=== PATIENT | male | born 1935 | race Caucasian/White ===

== ENCOUNTER 2019-07-24 00:43 | Emergency (ER) | payer OTHER, MEDICARE ==
--- NOTE | 2019-07-24 00:59 | EDM.PDOC ---
ED HPI GENERAL MEDICAL PROBLEM - General Chief Complaint: Chest Pain Stated Complaint: [facility] Time Seen by Provider: 07/24/19 00:51 Source of Information: Reports: Patient, [facility] Records History Limitations: Reports: No Limitations - History of Present Illness INITIAL COMMENTS - FREE TEXT/NARRATIVE: 83-year-old male from local senior living is brought to the hospital for evaluation of chest pain that he complained about at about midnight. He awoke from sleep with lower retrosternal chest pressure discomfort that has dissipated and gone away completely by the time he arrived in the ED. he states the pain was very bad he would've rated as 10 out of 10 when it was present. It seemed to get better once he sat her started to set up after lying down. This suggests a mechanical cause to the pain. Appreciated burping or belching. No feeling of heartburn or reflux. Pain did not radiate through to his back into his neck or left upper extremity. He has no known history of heart disease. His cough or sputum production. Pain is not worsened by deep breathing. He does feel pain mostly in the pit of his stomach when I firmly question him. No nausea or vomiting. Medics did not give him any medication for the discomfort since it was nearly gone at the time they picked him up. Patient states she's never had similar type pain before. States he does get heartburn once in a while. He states the pain lasted about 20-30 minutes. It then went away on its own. Patient's labs reveal that he has heart failure taking 60 mg of Lasix twice a day and is on Aldactone twice a day as well. However his O2 sats are 98% in the ED. Onset: Today Onset Date: 07/24/19 Onset Time: 00:00 Duration: Minutes: Location: Reports: Chest, Abdomen (Lower retrosternal chest and pit of the stomach) Quality: Reports: Ache, Pressure Severity: Moderate (Was a 6 out of 10.) Improves with: Reports: Other Worsens with: Reports: None (Went away on its own over a period of 20-30 minutes.) Context: Reports: Other (Spontaneous occurrence that awoken from sleep.). Denies: Activity, Exercise, Lifting, Sick Contact, Trauma Associated Symptoms: Reports: No Other Symptoms, Chest Pain. Denies: Confusion , Cough, cough w sputum, Diaphoresis, Fever/Chills, Headaches, Loss of Appetite , Malaise, Nausea/Vomiting, Rash, Seizure, Shortness of Breath, Syncope Treatments NPS: Reports: Other (see below) (None.) Bilateral Chest Pain Score (Numeric/FACES): 6 - Related Data Allergies Allergy/AdvReac Type Severity Reaction Status Date / Time codeine Allergy Cannot Verified 07/24/19 00:51 Remember Sulfa (Sulfonamide Allergy Cannot Verified 07/24/19 00:51 Antibiotics) Remember Home Meds: Home Meds Acetaminophen 325 - 650 mg PO Q8H PRN 07/24/19 [History] Acetaminophen 650 mg PO TID 07/24/19 [History] Albuterol [Ventolin HFA] 2 puff INH Q6H PRN 07/24/19 [History] Bisacodyl 10 mg RC Q3D PRN 07/24/19 [History] Budesonide/Formoterol [Symbicort 160-4.5 MCG] 2 puff INH BID 07/24/19 [History] Calcium Carbonate/Vitamin D3 [Calcium 600 + D3 Softgel] 1 each PO DAILY [History] Carbidopa/Levodopa [Sinemet 25-100 mg Tablet] 1 each PO TID 07/24/19 [History] FLUoxetine HCl [Fluoxetine HCl] 20 mg PO DAILY 07/24/19 [History] Folic Acid 0.4 mg PO DAILY 07/24/19 [History] Furosemide [Lasix] 60 mg PO BID 07/24/19 [History] Magnesium Hydroxide [Milk of Magnesia] 30 ml PO DAILY PRN 07/24/19 [History] Melatonin 6 mg PO BEDTIME 07/24/19 [History] Metoprolol Tartrate [Lopressor] 50 mg PO BID 07/24/19 [History] Polyethylene Glycol 3350 [MiraLAX] 17 gm PO DAILY 07/24/19 [History] Pyridoxine HCl [Vitamin B-6] 50 mg PO DAILY 07/24/19 [History] Spironolactone [Aldactone] 25 mg PO DAILY 07/24/19 [History] Tamsulosin [Tamsulosin 24 Hr] 0.4 mg PO DAILY 07/24/19 [History] guaiFENesin [G-Fenesin] 400 mg PO TID PRN 07/24/19 [History] Past Medical History Cardiovascular History: Reports: Heart Failure, High Cholesterol, Hypertension Gastrointestinal History: Reports: Chronic Constipation, GERD (Vocational GERD.) Genitourinary History: Reports: BPH (Nocturia usually 3 times nightly.) Musculoskeletal History: Reports: Back Pain, Chronic, Osteoarthritis Neurological History: Reports: Parkinson's (He is on carbidopa levodopa 3 times a day.) Social & Family History - Living Situation & Occupation Living situation: Reports: , Extended Care Facility ([facility]) Occupation: Retired ED ROS GENERAL - Review of Systems Review Of Systems: See Below Constitutional: Reports: Malaise, Weakness, Fatigue. Denies: Fever, Chills HEENT: Reports: Glasses (Revision.) Respiratory: Reports: Shortness of Breath, Cough. Denies: Wheezing, Pleuritic Chest Pain, Sputum Cardiovascular: Reports: Blood Pressure Problem, Dyspnea on Exertion (Chronic lower extremities.), Edema. Denies: Chest Pain (Occasional cough with thick sputum.), Claudication, Lightheadedness, Orthopnea Endocrine: Reports: Fatigue ( Chronically.) GI/Abdominal: Reports: Constipation, Other (Occasional reflux.) : Reports: Frequency, Other (Nocturia usually 3. Known BPH.) Musculoskeletal: Reports: Back Pain, Joint Pain (Knees hips neck and shoulders at times.) Skin: Reports: No Symptoms Neurological: Reports: Difficulty Walking (Due to Parkinson's disease.) Psychiatric: Denies: Hallucinations Hematologic/Lymphatic: Reports: No Symptoms Immunologic: Reports: No Symptoms ED EXAM, GENERAL - Physical Exam Exam: See Below Exam Limited By: No Limitations General Appearance: Alert, WD/WN, No Apparent Distress, Other (Vital signs show temperature 36.9 with a pulse of 67 and sinus. Respiratory 16 BP is 11/22/49. Pulse ox 98% on room air.) Eye Exam: Bilateral Eye: Normal Inspection Throat/Mouth: Normal Inspection, Normal Lips, Normal Oropharynx Head: Atraumatic, Normocephalic Neck: Normal Inspection, Supple, Non-Tender, Full Range of Motion. No: Lymphadenopathy (L), Lymphadenopathy (R) Respiratory/Chest: No Respiratory Distress, Normal Breath Sounds, Decreased Breath Sounds, Other (I can easily hear bowel sounds in his upper anterior chest.). No: Rales, Rhonchi, Wheezing Cardiovascular: Regular Rate, Rhythm, No Gallop, No Murmur, No Rub, Systolic Murmur (Grade 2/6 pansystolic ejection murmur best heard at the left lower sternal border compatible with aortic stenosis.). No: Normal Peripheral Pulses , No Edema Peripheral Pulses: 1+: Posterior Tibial (L), Posterior Tibial (R), Dorsalis Pedis (L), Dorsalis Pedis (R) GI/Abdominal: Soft, No Organomegaly, Pelvis Stable, Distended (Gallstones are hyperactive in all 4 quadrants. Mildly distended and diffusely tympanitic to percussion with compatible with aerophagia.), Abnormal Bowel Sounds, Other (It appears that he may have had some surgery infraumbilically in the past but he doesn't remember having surgery.) (Male) Exam: No Hernia, Other Back Exam: Normal Inspection, Full Range of Motion. No: CVA Tenderness (L), CVA Tenderness (R) Extremities: Normal Inspection, Normal Range of Motion, Non-Tender, Pedal Edema Neurological: Alert, Oriented (Mild pitting edema around the ankles.), CN II- XII Intact, Normal Cognition Psychiatric: Normal Affect, Normal Mood Skin Exam: Warm, Dry, Intact, Normal Color, No Rash EKG INTERPRETATION EKG Date: 07/24/19 Time: 00:46 Rhythm: NSR Rate (Beats/Min): 66 (Occasional PACs.) [place]: LAD-Left [place] Deviation (-30.) P-Wave: Enlarged (Consider left atrial hypertrophy.) QRS: Other (Early R-wave transition in V2 suggesting right ventricular hypertrophy pattern. There is a diffuse nonspecific intraventricular conduction delay pattern.) QT: Prolonged (Mildly prolonged.) EKG Interpretation Comments: Abnormal ECG with no signs of acute ischemia. Course - Vital Signs Last Recorded V/S: Last Vital Signs Temp 36.9 C 07/24/19 00:48 Pulse 67 07/24/19 00:48 Resp 16 07/24/19 00:48 BP 130/49 L 07/24/19 00:48 Pulse Ox 98 07/24/19 00:48 - Orders/Labs/Meds Orders: Active Orders 24 hr Category Date Time Status Bladder Scan [RC] ASDIRECTED Care 07/24/19 01:03 Active EKG Documentation Completion [RC] STAT Care 07/24/19 01:01 Active Abdomen 1V Flat [CR] Stat Exams 07/24/19 01:01 Taken Chest 2V [CR] Stat Exams 07/24/19 01:00 Taken Sodium Chloride 0.9% [Normal Saline] 1,000 ml Med 07/24/19 01:00 Active IV ASDIRECTED Medication Orders Sodium Chloride (Normal Saline) 1,000 mls @ 100 mls/hr IV ASDIRECTED DENNIS Last Admin: 07/24/19 01:39 Dose: 100 mls/hr Labs: Laboratory Tests 07/24/19 07/24/19 07/24/19 Range/Units 00:58 00:58 00:58 WBC 9.13 H (4.23-9.07) K/mm3 RBC 2.24 L (4.63-6.08) M/mm3 Hgb 8.2 L (13.7-17.5) gm/dl Hct 24.1 L (40.1-51.0) % MCV 107.6 H (79.0-92.2) fl MCH 36.6 H (25.7-32.2) pg MCHC 34.0 (32.2-35.5) g/dl RDW Std Deviation 68.6 H (35.1-43.9) fL Plt Count 277 (163-337) K/mm3 MPV 11.1 (9.4-12.3) fl Neut % (Auto) 74.8 H (34.0-67.9) % Lymph % (Auto) 13.1 L (21.8-53.1) % Kay % (Auto) 9.2 (5.3-12.2) % Eos % (Auto) 2.5 (0.8-7.0) Baso % (Auto) 0.4 (0.1-1.2) % Neut # (Auto) 6.82 H (1.78-5.38) K/mm3 Lymph # (Auto) 1.20 L (1.32-3.57) K/mm3 Kay # (Auto) 0.84 H (0.30-0.82) K/mm3 Eos # (Auto) 0.23 (0.04-0.54) K/mm3 Baso # (Auto) 0.04 (0.01-0.08) K/mm3 Manual Slide Review Abnormal smear PT 10.7 (9.7-12.0) SECONDS INR 0.98 APTT 25 (22-31) SECONDS Sodium 139 (136-145) mEq/L Potassium 4.2 (3.5-5.1) mEq/L Chloride 103 (98-107) mEq/L Carbon Dioxide 30 (21-32) mEq/L Anion Gap 10.2 (5-15) BUN 38 H (7-18) mg/dL Creatinine 2.0 H (0.7-1.3) mg/dL Est Cr Clr Drug Dosing TNP Estimated GFR (MDRD) 32 (>60) mL/min BUN/Creatinine Ratio 19.0 H (14-18) Glucose 107 (83-115) mg/dL Calcium 8.0 L (8.5-10.1) mg/dL Magnesium 2.3 (1.8-2.4) mg/dl Total Bilirubin 0.8 (0.2-1.0) mg/dL AST 23 (15-37) U/L ALT 12 L (16-63) U/L Alkaline Phosphatase 63 (46-116) U/L CK-MB (CK-2) 1.3 (0-3.6) ng/ml Troponin I 0.018 (0.00-0.056) ng/mL C-Reactive Protein < 0.2 (<1.0) mg/dL NT-Pro-B Natriuret Pep (0-450) pg/mL Total Protein 6.1 L (6.4-8.2) g/dl Albumin 3.3 L (3.4-5.0) g/dl Globulin 2.8 gm/dL Albumin/Globulin Ratio 1.2 (1-2) Amylase 44 (20-160) U/L Urine Color (Yellow) Urine Appearance (Clear) Urine pH (5.0-8.0) Ur Specific [place] (1.005-1.030) Urine Protein (Negative) Urine Glucose (UA) (Negative) Urine Ketones (Negative) Urine Occult Blood (Negative) Urine Nitrite (Negative) Urine Bilirubin (Negative) Urine Urobilinogen (0.2-1.0) Ur Leukocyte Esterase (Negative) Urine RBC (0-5) /hpf Urine WBC (0-5) /hpf Ur Epithelial Cells (0-5) /hpf Urine Bacteria (FEW) /hpf Urine Mucus (FEW) /hpf 10/01/19 10/01/19 Range/Units 00:58 01:44 WBC (4.23-9.07) K/mm3 RBC (4.63-6.08) M/mm3 Hgb (13.7-17.5) gm/dl Hct (40.1-51.0) % MCV (79.0-92.2) fl MCH (25.7-32.2) pg MCHC (32.2-35.5) g/dl RDW Std Deviation (35.1-43.9) fL Plt Count (163-337) K/mm3 MPV (9.4-12.3) fl Neut % (Auto) (34.0-67.9) % Lymph % (Auto) (21.8-53.1) % Kay % (Auto) (5.3-12.2) % Eos % (Auto) (0.8-7.0) Baso % (Auto) (0.1-1.2) % Neut # (Auto) (1.78-5.38) K/mm3 Lymph # (Auto) (1.32-3.57) K/mm3 Kay # (Auto) (0.30-0.82) K/mm3 Eos # (Auto) (0.04-0.54) K/mm3 Baso # (Auto) (0.01-0.08) K/mm3 Manual Slide Review PT (9.7-12.0) SECONDS INR APTT (22-31) SECONDS Sodium (136-145) mEq/L Potassium (3.5-5.1) mEq/L Chloride (98-107) mEq/L Carbon Dioxide (21-32) mEq/L Anion Gap (5-15) BUN (7-18) mg/dL Creatinine (0.7-1.3) mg/dL Est Cr Clr Drug Dosing Estimated GFR (MDRD) (>60) mL/min BUN/Creatinine Ratio (14-18) Glucose (83-115) mg/dL Calcium (8.5-10.1) mg/dL Magnesium (1.8-2.4) mg/dl Total Bilirubin (0.2-1.0) mg/dL AST (15-37) U/L ALT (16-63) U/L Alkaline Phosphatase (46-116) U/L CK-MB (CK-2) (0-3.6) ng/ml Troponin I (0.00-0.056) ng/mL C-Reactive Protein (<1.0) mg/dL NT-Pro-B Natriuret Pep 2823 H (0-450) pg/mL Total Protein (6.4-8.2) g/dl Albumin (3.4-5.0) g/dl Globulin gm/dL Albumin/Globulin Ratio (1-2) Amylase (20-160) U/L Urine Color Yellow (Yellow) Urine Appearance Slt cloudy H (Clear) Urine pH 6.0 (5.0-8.0) Ur Specific [place] 1.020 (1.005-1.030) Urine Protein Negative (Negative) Urine Glucose (UA) Negative (Negative) Urine Ketones Negative (Negative) Urine Occult Blood Negative (Negative) Urine Nitrite Negative (Negative) Urine Bilirubin Negative (Negative) Urine Urobilinogen 2.0 H (0.2-1.0) Ur Leukocyte Esterase Negative (Negative) Urine RBC 0-5 (0-5) /hpf Urine WBC 0-5 (0-5) /hpf Ur Epithelial Cells 5-10 H (0-5) /hpf Urine Bacteria Few (FEW) /hpf Urine Mucus Few (FEW) /hpf Meds: Medications Generic Name Dose Route Start Last Admin Trade Name Freq PRN Reason Stop Dose Admin Sodium Chloride 1,000 mls @ 100 mls/hr 07/24/19 01:00 07/24/19 01:39 Normal Saline IV 100 mls/hr ASDIRECTED DENNIS Administration Discontinued Medications Generic Name Dose Route Start Last Admin Trade Name Freq PRN Reason Stop Dose Admin Al Hydroxide/Mg Hydroxide 30 0 ml 07/24/19 01:04 07/24/19 01:39 ml/ Lidocaine HCl 15 ml PO 07/24/19 01:05 45 ml ONETIME ONE Administration Magnesium Citrate 240 ml 07/24/19 02:04 Citrate Of Magnesia PO 07/24/19 02:05 ONETIME ONE - Radiology Interpretation Free Text/Narrative:: Elderly male presents to the ED with a history of awakening from sleep around midnight and was severe central chest pressure discomfort. It dissipated before he came to the ED last about 20-30 minutes. He did not seem to radiate anywhere he didn't get any relief with burping or belching. On auscultation I can hear bowel sounds up in his anterior chest. He has very active bowel sounds however throughout his abdomen and he is mildly distended and tympanitic to percussion. Pain localized mostly to the pit of the stomach or epigastrium on exam. SPECT hiatal hernia that may have caused his chest pain. ECG shows sinus rhythm and is benign in terms no ischemic changes noted. His recovery has a history of congestive heart failure but lungs sound clear at this point time. Two-view chest x-ray to be done to see if I can identify hiatal hernia behind his heart. One of the abdomen due to distention and very active bowel sounds throughout. Routine labs to include cardiac markers. However this time he is pain-free and feels fine. - Re-Assessments/Exams Free Text/Narrative Re-Assessment/Exam: 07/24/19 02:00 two-view x-ray of the chest reveals moderate cardiomegaly. There is no pleural effusions. There is a soft tissue mass containing air protruding up into the retrocardiac space presumably colon. I could find no definite connection to the stomach to say that it is a hiatal hernia. X-rays of the abdomen shows a large amount of gas distending multiple areas of the colon. There is increased stool throughout the right hemicolon and hepatic flexure. This is compatible with mild to moderate constipation. No bowel obstruction signs of are identified. 07/24/19 02:03 White count is 9.13 with altered differential of 75% neutrophils. Hemoglobin is low at 8.2 with hematocrit of 24.1. MCV is markedly elevated at 107.6. This merges comments that there is abnormal blood cell morphology. This is nonspecific PT is 10.7 with an INR of 0.98 PTT is 25. Sodium is 139 with potassium of 4.2. Chloride is normal through the bicarbonate 30. Anion gap is 10.2 BUN is 38. Creatinine is 2.0 with a estimated GFR of 32 a staged 3 chronic kidney disease. Glucose is 107 with a calcium of 8.0. Magnesium is 2.3. Liver function is normal CK-MB fraction 1.3 troponin I is less than 0.018. C-reactive protein is less than 0.2. BNP is 2823. Total protein is 6.1 with an albumin fraction of 3.3. Amylase is 44. Urinalysis shows slightly cloudy urine 2+ urobilinogen but no signs of infection. Patient has had no recurrence of his chest pain. It appears that it is gastrointestinal in origin. He to take magnesium citrate or Citroma later this morning to provide bowel cleanse. Suggest 8 ounces by mouth next to 6 ounces of juice of choice. 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 This appears to be GI in origin. Bowel sounds were found to be hyperactive in all 4 quadrants with a lot of air distending the bowel. Bowel sounds were also heard in the chest. Heart tracing proved to be normal. Chest x-ray reveals soft tissue mass up in behind the heart that most likely is a large bowel pushing up the diaphragm in this area. I suspect this was the cause of your transient chest pressure pain. Lab tests proved to be completely negative for any heart related illness other than chronic congestive heart failure which you known to suffer from. X-rays of the abdomen revealed a large amount of air distending the colon with increased stool throughout the right hemicolon and along the liver and upper abdomen. This is constipation partly due to medications used to treat Parkinson's disease and also part of Parkinson's disease itself in terms of causing chronic constipation. No treatment was given in the ED. Suggest Citroma or magnesium citrate 8 ounces with 6 ounces of juice later this morning to provide bowel cleanse get rid of a lot of extra gas in the colon. This time continue all current medications including your water medication twice daily for heart failure. - My Orders Last 24 Hours: My Active Orders 07/24/19 01:00 Chest 2V [CR] Stat Sodium Chloride 0.9% [Normal Saline] 1,000 ml IV ASDIRECTED 07/24/19 01:01 EKG Documentation Completion [RC] STAT Abdomen 1V Flat [CR] Stat 07/24/19 01:03 Bladder Scan [RC] ASDIRECTED - Assessment/Plan Last 24 Hours: My Active Orders 07/24/19 01:00 Chest 2V [CR] Stat Sodium Chloride 0.9% [Normal Saline] 1,000 ml IV ASDIRECTED 07/24/19 01:01 EKG Documentation Completion [RC] STAT Abdomen 1V Flat [CR] Stat 07/24/19 01:03 Bladder Scan [RC] ASDIRECTED
[2019-07-24] MEDS ORDERED: Sodium Chloride 0.9% 1,000 ML IV SCH (01:00)
[2019-07-24] MEDS ORDERED: Alum Hydrox/Mag Hydrox/Simeth 30 ML, Lidocaine 2% 15 ML PO ONE ×2 (01:04)
[2019-07-24] MEDS ORDERED: Magnesium Citrate Solution 296 ML Bottle PO ONE (02:04)
--- NOTE | 2019-07-24 08:58 | CR ---
Chest: Two views of the chest were obtained. Comparison: No prior chest x-ray. Slight atelectasis or scarring is noted within the left base. Minimal pleural thickening is noted on the left lateral chest wall which is most likely old. Lungs otherwise are clear. Heart size is normal. Upper mediastinum is normal. Degenerative endplate spurring is noted within the spine with scattered disc space narrowing. Impression: 1. Slight atelectasis or scarring within the left base. Lateral pleural thickening within the left chest which is believed to be chronic. 2. Other incidental findings. Nothing acute is appreciated. Diagnostic code #2
--- NOTE | 2019-07-24 08:58 | CR ---
Abdomen: Supine view of the abdomen was obtained. Comparison: No prior abdominal x-ray. Degenerative endplate spurring is noted within the spine with scattered disc space narrowing. Aortoiliac stent is present. Joint space narrowing is noted within both hips. Vascular calcification is seen within the pelvis. Phleboliths are also noted within the pelvis. Slight increased stool within the colon is seen. Bowel gas within small bowel appears normal. Impression: 1. Findings believed to be incidental. Nothing acute is appreciated on supine abdominal x-ray. Diagnostic code #2
== END 2019-07-24 03:27 | disposition home or self-care (01) ==
LOC: JD.ED 00:43
DX: R07.89 Other chest pain (principal); I12.9 Hypertensive chronic kidney disease with stage 1 through stage 4 chronic kidney disease, or unspecified chronic kidney disease; N18.9 Chronic kidney disease, unspecified; D63.1 Anemia in chronic kidney disease; K59.01 Slow transit constipation; G21.9 Secondary parkinsonism, unspecified; M19.90 Unspecified osteoarthritis, unspecified site; Z88.5 Allergy status to narcotic agent; Z88.2 Allergy status to sulfonamides; Z79.899 Other long term (current) drug therapy
CPT/HCPCS: 36415; 71046; 74018; 80053; 81001; 82150; 82553; 83735; 83880; 84484; 85025; 85610; 85730; 86140; 93005; 96360; 99285; A9270; J7040; 93010

== ENCOUNTER 2019-07-26 16:31 | Emergency (ER) | payer OTHER, MEDICARE ==
[2019-07-26] MEDS ORDERED: HYDROmorphone 0.5 MG/0.5 ML Syringe IVPUSH ONE ×2 (17:03→17:54)
[2019-07-26] MEDS ORDERED: Alum Hydrox/Mag Hydrox/Simeth 30 ML, Lidocaine 2% 15 ML PO ONE ×2 (17:28)
--- NOTE | 2019-07-26 19:11 | EDM.PDOC ---
ED HPI GENERAL MEDICAL PROBLEM - General Chief Complaint: Chest Pain Stated Complaint: [facility] Time Seen by Provider: 07/26/19 16:50 Source of Information: Reports: Patient, EMS, Family History Limitations: Reports: No Limitations - History of Present Illness INITIAL COMMENTS - FREE TEXT/NARRATIVE: The patient presents with chest pain. This started about an hour before arrival. He was here a few days ago for the same. He has pain upon palpation to the front of the chest. He has no shortness of breath. He has no fever or chills. He has no cough. 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 Onset: Gradual Duration: Hour(s): Location: Reports: Chest Quality: Reports: Sharp Severity: Moderate Improves with: Reports: None Worsens with: Reports: None Associated Symptoms: Reports: Chest Pain, Shortness of Breath. Denies: Cough, Fever/Chills, Headaches, Nausea/Vomiting Left Chest Pain Score (Numeric/FACES): 9 - Related Data Allergies Allergy/AdvReac Type Severity Reaction Status Date / Time codeine Allergy Cannot Verified 07/26/19 16:38 Remember Sulfa (Sulfonamide Allergy Cannot Verified 07/26/19 16:38 Antibiotics) Remember Home Meds: Home Meds Acetaminophen 325 - 650 mg PO Q8H PRN 07/24/19 [History] Acetaminophen 650 mg PO TID 07/24/19 [History] Albuterol [Ventolin HFA] 2 puff INH Q6H PRN 07/24/19 [History] Bisacodyl 10 mg RC Q3D PRN 07/24/19 [History] Budesonide/Formoterol [Symbicort 160-4.5 MCG] 2 puff INH BID 07/24/19 [History] Calcium Carbonate/Vitamin D3 [Calcium 600 + D3 Softgel] 1 each PO DAILY [History] Carbidopa/Levodopa [Sinemet 25-100 mg Tablet] 1 each PO TID 07/24/19 [History] FLUoxetine HCl [Fluoxetine HCl] 20 mg PO DAILY 07/24/19 [History] Folic Acid 0.4 mg PO DAILY 07/24/19 [History] Furosemide [Lasix] 60 mg PO BID 07/24/19 [History] Magnesium Hydroxide [Milk of Magnesia] 30 ml PO DAILY PRN 07/24/19 [History] Melatonin 6 mg PO BEDTIME 07/24/19 [History] Metoprolol Tartrate [Lopressor] 50 mg PO BID 07/24/19 [History] Polyethylene Glycol 3350 [MiraLAX] 17 gm PO DAILY PRN 07/24/19 [History] Pyridoxine HCl [Vitamin B-6] 50 mg PO DAILY 07/24/19 [History] Spironolactone [Aldactone] 25 mg PO DAILY 07/24/19 [History] Tamsulosin [Tamsulosin 24 Hr] 0.4 mg PO DAILY 07/24/19 [History] guaiFENesin [G-Fenesin] 400 mg PO TID PRN 07/24/19 [History] Past Medical History HEENT History: Reports: Hard of Hearing Other HEENT History: Bilateral hearing aids Cardiovascular History: Reports: Heart Failure, High Cholesterol, Hypertension, Other (See Below) Other Cardiovascular History: nonrheumatic aortic stenosis Respiratory History: Reports: Asthma Gastrointestinal History: Reports: Chronic Constipation, GERD Genitourinary History: Reports: BPH Musculoskeletal History: Reports: Back Pain, Chronic, Osteoarthritis, Other ( See Below) Other Musculoskeletal History: chronic myeloproliferative disease Neurological History: Reports: Parkinson's, Other (See Below) Other Neuro History: spinal stenosis, tremor, insomnia Psychiatric History: Reports: Alzheimers Disease, Dementia Hematologic History: Reports: Other (See Below) Other Hematologic History: vitamin deficiency Social & Family History - Family History Family Medical History: Noncontributory - Tobacco Use Smoking Status *Q: Never Smoker - Recreational Drug Use Recreational Drug Use: No - Living Situation & Occupation Living situation: Reports: , Extended Care Facility ([facility]) Occupation: Retired ED ROS GENERAL - Review of Systems Review Of Systems: See Below Constitutional: Reports: No Symptoms HEENT: Reports: No Symptoms Respiratory: Reports: No Symptoms Cardiovascular: Reports: Chest Pain Endocrine: Reports: No Symptoms GI/Abdominal: Reports: No Symptoms : Reports: No Symptoms ED EXAM, GENERAL - Physical Exam Exam: See Below Exam Limited By: No Limitations General Appearance: Alert, No Apparent Distress Ears: Normal External Exam Nose: Normal Inspection Head: Atraumatic, Normocephalic Neck: Normal Inspection Respiratory/Chest: No Respiratory Distress, Lungs Clear, Normal Breath Sounds Cardiovascular: Regular Rate, Rhythm, No Edema, No Murmur, Other (Pain upon palpation to the anterior and left chest) EKG INTERPRETATION EKG Date: 07/26/19 Time: 16:50 Rhythm: NSR Rate (Beats/Min): 66 [place]: Normal P-Wave: Present QRS: Normal ST-T: Normal QT: Normal DC/PQ Interval: 1st degree HB EKG Interpretation Comments: PACs Course - Vital Signs Last Recorded V/S: Last Vital Signs Temp 97.7 F 07/26/19 16:32 Pulse 70 07/26/19 16:32 Resp 20 07/26/19 16:32 BP 96/78 07/26/19 16:32 Pulse Ox 91 L 07/26/19 16:32 - Orders/Labs/Meds Orders: Active Orders 24 hr Category Date Time Status EKG 12 Lead [EKG Documentation Completion] [RC] STAT Care 07/26/19 16:53 Active Chest 1V Frontal [CR] Stat Exams 07/26/19 16:48 Taken Labs: Laboratory Tests 07/26/19 07/26/19 Range/Units 17:18 17:18 WBC 10.26 H (4.23-9.07) K/mm3 RBC 2.35 L (4.63-6.08) M/mm3 Hgb 8.6 L (13.7-17.5) gm/dl Hct 25.4 L (40.1-51.0) % MCV 108.1 H (79.0-92.2) fl MCH 36.6 H (25.7-32.2) pg MCHC 33.9 (32.2-35.5) g/dl RDW Std Deviation 69.3 H (35.1-43.9) fL Plt Count 289 (163-337) K/mm3 MPV 11.2 (9.4-12.3) fl Neut % (Auto) 74.1 H (34.0-67.9) % Lymph % (Auto) 13.9 L (21.8-53.1) % Elliott % (Auto) 9.6 (5.3-12.2) % Eos % (Auto) 1.9 (0.8-7.0) Baso % (Auto) 0.5 (0.1-1.2) % Neut # (Auto) 7.60 H (1.78-5.38) K/mm3 Lymph # (Auto) 1.43 (1.32-3.57) K/mm3 Elliott # (Auto) 0.99 H (0.30-0.82) K/mm3 Eos # (Auto) 0.19 (0.04-0.54) K/mm3 Baso # (Auto) 0.05 (0.01-0.08) K/mm3 Manual Slide Review Abnormal smear Sodium 139 (136-145) mEq/L Potassium 4.9 (3.5-5.1) mEq/L Chloride 103 (98-107) mEq/L Carbon Dioxide 30 (21-32) mEq/L Anion Gap 10.9 (5-15) BUN 38 H (7-18) mg/dL Creatinine 2.0 H (0.7-1.3) mg/dL Est Cr Clr Drug Dosing TNP Estimated GFR (MDRD) 32 (>60) mL/min BUN/Creatinine Ratio 19.0 H (14-18) Glucose 99 (83-115) mg/dL Calcium 8.1 L (8.5-10.1) mg/dL Total Bilirubin 0.8 (0.2-1.0) mg/dL AST 27 (15-37) U/L ALT 17 (16-63) U/L Alkaline Phosphatase 61 (46-116) U/L Troponin I 0.050 (0.00-0.056) ng/mL Total Protein 6.3 L (6.4-8.2) g/dl Albumin 3.4 (3.4-5.0) g/dl Globulin 2.9 gm/dL Albumin/Globulin Ratio 1.2 (1-2) Meds: Medications Discontinued Medications Generic Name Dose Route Start Last Admin Trade Name Freq PRN Reason Stop Dose Admin Al Hydroxide/Mg Hydroxide 30 0 ml 07/26/19 17:28 07/26/19 17:33 ml/ Lidocaine HCl 15 ml PO 07/26/19 17:29 45 ml ONETIME ONE Administration Hydromorphone HCl 0.25 mg 07/26/19 17:03 07/26/19 17:07 Dilaudid IVPUSH 07/26/19 17:04 0.25 mg ONETIME ONE Administration Hydromorphone HCl 0.5 mg 07/26/19 17:54 10/03/19 17:58 Dilaudid IVPUSH 07/26/19 17:55 0.5 mg ONETIME ONE Administration - Re-Assessments/Exams Free Text/Narrative Re-Assessment/Exam: 07/26/19 19:09 I ordered an IV saline lock, EKG, CXR and labs. His EKG shows a NSR with no acute changes. His CXR looks good. 07/26/19 19:16 His Hgb is low at 8.6. His creatinine is elevated at 2. His troponin is negative. I gave him some toradol and a GI cocktail. He has chest pain upon palpation to the anterior chest. I feel this is chest wall pain. I will get him on some motrin for a few days. Departure - Departure Time of Disposition: 19:20 Disposition: Home, Self-Care 01 Condition: Good Clinical Impression: Atypical chest pain Referrals: PCP,Unknown [Primary Care Provider] - Forms: ED Department Discharge Additional Instructions: Take motrin 400mg every 6 hours as needed for pain. Follow up with your doctor within a week. Drink plenty of fluids. Please return if you are worse. - My Orders Last 24 Hours: My Active Orders 07/26/19 16:48 Chest 1V Frontal [CR] Stat 07/26/19 16:53 EKG 12 Lead [EKG Documentation Completion] [RC] STAT - Assessment/Plan Last 24 Hours: My Active Orders 07/26/19 16:48 Chest 1V Frontal [CR] Stat 07/26/19 16:53 EKG 12 Lead [EKG Documentation Completion] [RC] STAT
--- NOTE | 2019-07-27 09:36 | CR ---
Chest: Portable view of the chest was obtained. Comparison: Prior chest x-ray of 07/24/19. Slight chronic change is seen within the left base. Lungs otherwise are clear. Heart is mildly enlarged. Tortuous thoracic aorta is seen. Widened upper mediastinum is seen which appears stable. Bony structures are grossly intact. Impression: 1. Findings as noted above which are stable from previous chest x-ray. 2. Nothing acute is appreciated. Diagnostic code #2
== END 2019-07-26 20:13 | disposition home or self-care (01) ==
LOC: JD.ED 16:31
DX: R07.89 Other chest pain (principal); J45.909 Unspecified asthma, uncomplicated; I11.0 Hypertensive heart disease with heart failure; I50.9 Heart failure, unspecified; N40.0 Benign prostatic hyperplasia without lower urinary tract symptoms; G20 Parkinson's disease; G30.9 Alzheimer's disease, unspecified; F02.80 Dementia in other diseases classified elsewhere, unspecified severity, without behavioral disturbance, psychotic disturbance, mood disturbance, and anxiety; Z79.899 Other long term (current) drug therapy; Z88.5 Allergy status to narcotic agent; Z88.2 Allergy status to sulfonamides; Z79.51 Long term (current) use of inhaled steroids
CPT/HCPCS: 36415; 71045; 80053; 84484; 85025; 93005; 96374; 96376; 99285; A9270; J1170

== ENCOUNTER 2019-11-04 15:30 | Emergency (ER) | payer OTHER, MEDICARE ==
--- NOTE | 2019-11-04 16:12 | EDM.PDOC ---
ED HPI GENERAL MEDICAL PROBLEM - General Chief Complaint: Abdominal Pain Stated Complaint: [facility] Time Seen by Provider: 11/04/19 16:01 Source of Information: Reports: Patient, Family, Assisted Records, RN Notes Reviewed - History of Present Illness INITIAL COMMENTS - FREE TEXT/NARRATIVE: 83 yr old male is sent here for eval of dry heaves, unable to eat or drink lunch. He started vomiting according to either during or shortly after lunch this past noon. Has not had a BM for 3 days so [place] staff has concern for possible bowel obstruction. Pt denies pain or vomiting but has dementia, unable to give an acurate hx. His states he had anurysm repair about 6 yrs ago, I do not see any surgical scars. No chest pain or difficulty breathing. Has been afebrile. He has advanced dementia. Not able to give a good hx at all. His states he also had an episode of vomiting at the [place] about 2 weeks ago but since than has done OK up until today. - Related Data Allergies Allergy/AdvReac Type Severity Reaction Status Date / Time codeine Allergy Cannot Verified 11/04/19 15:37 Remember Home Meds: Home Meds Albuterol [Ventolin HFA] 2 puff INH Q6H PRN 07/24/19 [History] Budesonide/Formoterol [Symbicort 160-4.5 MCG] 2 puff INH BID 07/24/19 [History] Calcium Carbonate/Vitamin D3 [Calcium 600 + D3 Softgel] 600 each PO DAILY [History] Carbidopa/Levodopa [Sinemet 25-100 mg Tablet] 1 each PO TID 07/24/19 [History] FLUoxetine HCl [Fluoxetine HCl] 40 mg PO DAILY 07/24/19 [History] Folic Acid 0.4 mg PO DAILY 07/24/19 [History] Furosemide [Lasix] 60 mg PO BID 07/24/19 [History] Magnesium Hydroxide [Milk of Magnesia] 30 ml PO DAILY PRN 07/24/19 [History] Melatonin 6 mg PO BEDTIME 07/24/19 [History] Metoprolol Tartrate [Lopressor] 50 mg PO BID 07/24/19 [History] Polyethylene Glycol 3350 [MiraLAX] 17 gm PO DAILY PRN 07/24/19 [History] Pyridoxine HCl [Vitamin B-6] 50 mg PO DAILY 07/24/19 [History] Spironolactone [Aldactone] 25 mg PO DAILY 07/24/19 [History] Tamsulosin [Tamsulosin 24 Hr] 0.4 mg PO DAILY 07/24/19 [History] bisacodyL [Bisacodyl] 10 mg RECTAL DAILY PRN 07/24/19 [History] guaiFENesin [G-Fenesin] 400 mg PO TID PRN 07/24/19 [History] Acetaminophen 650 mg PO TID 11/04/19 [History] Bisacodyl 5 mg PO DAILY 11/04/19 [History] Diclofenac Sodium [Voltaren 1% Gel] 2 g TOP BID 11/04/19 [History] Ibuprofen 400 mg PO ASDIRECTED 11/04/19 [History] Methyl Salicylate/Menthol [Extra Strength Muscle Rub] 90 dose TOP DAILY [History] guaiFENesin [Guaifenesin] 400 mg PO ASDIRECTED 11/04/19 [History] traMADol [Ultram] 50 mg PO BID 11/04/19 [History] Past Medical History HEENT History: Reports: Hard of Hearing Other HEENT History: Bilateral hearing aids Cardiovascular History: Reports: Heart Failure, High Cholesterol, Hypertension, Other (See Below) Other Cardiovascular History: nonrheumatic aortic stenosis, atherosclerotic heart disease Respiratory History: Reports: Asthma Gastrointestinal History: Reports: Chronic Constipation, GERD Genitourinary History: Reports: BPH Musculoskeletal History: Reports: Back Pain, Chronic, Osteoarthritis, Other ( See Below) Other Musculoskeletal History: chronic myeloproliferative disease Neurological History: Reports: Alzheimers Disease, Parkinson's, Other (See Below ) Other Neuro History: spinal stenosis, tremor, insomnia Psychiatric History: Reports: Alzheimers Disease, Dementia Hematologic History: Reports: Other (See Below) Other Hematologic History: vitamin deficiency Social & Family History - Family History Family Medical History: Noncontributory - Tobacco Use Smoking Status *Q: Never Smoker Second Hand Smoke Exposure: No - Caffeine Use Caffeine Use: Reports: None - Recreational Drug Use Recreational Drug Use: No - Living Situation & Occupation Living situation: Reports: , Extended Care Facility ([facility]) Occupation: Retired ED ROS GENERAL - Review of Systems Review Of Systems: See Below Constitutional: Denies: Fever, Chills HEENT: Denies: Throat Pain Respiratory: Denies: Shortness of Breath, Cough Cardiovascular: Denies: Chest Pain GI/Abdominal: Reports: Constipation, Vomiting. Denies: Abdominal Pain, Diarrhea Neurological: Reports: Confusion (chronic) ED EXAM, GI/ABD - Physical Exam Exam: See Below General Appearance: Alert, No Apparent Distress (at time of initial exam) Eyes: Bilateral: Normal Appearance Throat/Mouth: Normal Inspection, Normal Oropharynx Head: Atraumatic. No: Facial Swelling Neck: Supple Respiratory/Chest: No Respiratory Distress, Lungs Clear, Normal Breath Sounds. No: Rhonchi, Wheezing Cardiovascular: Regular Rate, Rhythm GI/Abdominal Exam: Soft, Non-Tender. No: Guarding, Rebound Back Exam: No: CVA Tenderness (L), CVA Tenderness (R) Extremities: No: Leg Pain Course - Vital Signs Last Recorded V/S: Last Vital Signs Temp 98.1 F 11/04/19 15:33 Pulse 71 11/04/19 15:33 Resp 16 11/04/19 15:33 BP 106/50 L 11/04/19 15:33 Pulse Ox 91 L 11/04/19 15:33 - Orders/Labs/Meds Orders: Active Orders 24 hr Category Date Time Status Peripheral IV Care [RC] . DIRECTED Care 11/04/19 16:15 Active Peripheral IV Insertion Adult [OM.PC] Stat Oth 11/04/19 16:14 Ordered Labs: Laboratory Tests 11/04/19 11/04/19 11/04/19 Range/Units 16:30 16:30 16:30 WBC 7.91 (4.23-9.07) K/mm3 RBC 2.89 L (4.63-6.08) M/mm3 Hgb 8.9 L (13.7-17.5) gm/dl Hct 27.3 L (40.1-51.0) % MCV 94.5 H D (79.0-92.2) fl MCH 30.8 (25.7-32.2) pg MCHC 32.6 (32.2-35.5) g/dl RDW Std Deviation 79.2 H (35.1-43.9) fL Plt Count 245 (163-337) K/mm3 MPV 10.6 (9.4-12.3) fl Neut % (Auto) 74.9 H (34.0-67.9) % Lymph % (Auto) 12.6 L (21.8-53.1) % Worth % (Auto) 9.9 (5.3-12.2) % Eos % (Auto) 0.9 (0.8-7.0) Baso % (Auto) 0.3 (0.1-1.2) % Neut # (Auto) 5.93 H (1.78-5.38) K/mm3 Lymph # (Auto) 1.00 L (1.32-3.57) K/mm3 Worth # (Auto) 0.78 (0.30-0.82) K/mm3 Eos # (Auto) 0.07 (0.04-0.54) K/mm3 Baso # (Auto) 0.02 (0.01-0.08) K/mm3 Manual Slide Review Abnormal smear Sodium 141 (136-145) mEq/L Potassium 4.3 (3.5-5.1) mEq/L Chloride 106 (98-107) mEq/L Carbon Dioxide 27 (21-32) mEq/L Anion Gap 12.3 (5-15) BUN 37 H (7-18) mg/dL Creatinine 1.8 H (0.7-1.3) mg/dL Est Cr Clr Drug Dosing 31.54 mL/min Estimated GFR (MDRD) 36 (>60) mL/min BUN/Creatinine Ratio 20.6 H (14-18) Glucose 100 (83-115) mg/dL Lactic Acid 0.9 (0.4-2.0) mmol/L Calcium 7.8 L (8.5-10.1) mg/dL Total Bilirubin 1.3 H (0.2-1.0) mg/dL AST 19 (15-37) U/L ALT 8 L (16-63) U/L Alkaline Phosphatase 46 (46-116) U/L C-Reactive Protein 0.8 (<1.0) mg/dL Total Protein 5.6 L (6.4-8.2) g/dl Albumin 3.0 L (3.4-5.0) g/dl Globulin 2.6 gm/dL Albumin/Globulin Ratio 1.2 (1-2) Meds: Medications Discontinued Medications Generic Name Dose Route Start Last Admin Trade Name Freq PRN Reason Stop Dose Admin Diatrizoate Meglum/Diatrizoate Sod 5 ml 11/04/19 19:19 11/04/19 19:54 Gastrografin 37% PO 11/04/19 19:20 5 ml ONETIME ONE Administration Glucagon 1 mg 11/04/19 18:59 11/04/19 19:15 Glucagen IVPUSH 11/04/19 19:00 1 mg ONETIME ONE Administration Sodium Chloride 1,000 mls @ 150 mls/hr 11/04/19 16:15 11/04/19 16:28 Normal Saline IV 150 mls/hr ASDIRECTED DENNIS Administration Piperacillin Sod/Tazobactam 100 mls @ 200 mls/hr 11/04/19 17:52 11/04/19 18: 03 Sod 4.5 gm/ Sodium Chloride IV 11/04/19 18:21 Not Given ONETIME ONE Ondansetron HCl 4 mg 11/04/19 16:15 11/04/19 16:27 Zofran IVPUSH 11/04/19 16:16 4 mg ONETIME ONE Administration Sodium Chloride 10 ml 11/04/19 16:15 11/04/19 16:27 Saline Flush FLUSH 10 ml ASDIRECTED PRN Administration Keep Vein Open - Re-Assessments/Exams Free Text/Narrative Re-Assessment/Exam: 11/05/19 14:58. Labs were nl, Flat and upright abd unremarkable. Pt is difficult in that with his advanced dementia he can give no hx and not sure if he even is able to describe current sx or how he feels at this time. When asked about abd or chest pain or difficulty swallowing or pain with swallowing the answer is always neg. I did have him drink water, he did swallow about 3 to 4 oz water without difficulty but than a minute or 2 later did start spitting saliva and than I am told he vomited water after I left the room. That continued to raise concern for impacted food bolus. I did discuss this with Dr Lennon, General Surgeon medical sonographer who suggested we do a chest CT and have him drink a small amt of contrast just prior to doing the CT. This was done. See Radiology report for details. He did get contrast down into the stomach, no evidence of food bolus impaction on CT. He may have some distal esophogeal stricture. I did further discuss this with Dr Lennon who did examine patient, discuss sx and findings with his who has been present for the whole ED visit. He did drink more water without difficulty for Dr Lennon. He feels it is safe for him to go back to the [place]. If he does have more symptoms, difficulty swallowing, eating or drinking than strong consideration will be given for elective endoscopy. Departure - Departure Time of Disposition: 20:45 Disposition: Home, Self-Care 01 Condition: Fair Clinical Impression: Vomiting - Discharge Information Instructions: Vomiting, Adult Referrals: Tyler Palumbo MD [Primary Care Provider] - Forms: ED Department Discharge Additional Instructions: Clear liquids only recomended until tomorrow afternoon (11/05). Than very careful bland diet as tolerated. If Scar does have more difficulty with swallowing or further vomiting call Dr Lennon, General Surgeon who did see patient this evening. If he does have further difficulty swallowing consideration will be given for endoscopy. Continue current meds. Call Dr Van as needed. Return to ED as needed. Sepsis Event Note - Evaluation Sepsis Screening Result: No Definite Risk - Focused Exam Date Exam was Performed: 11/05/19 Time Exam was Performed: 14:58 - My Orders Last 24 Hours: My Active Orders 11/04/19 16:14 Peripheral IV Insertion Adult [OM.PC] Stat 11/04/19 16:15 Peripheral IV Care [RC] . DIRECTED - Assessment/Plan Last 24 Hours: My Active Orders 11/04/19 16:14 Peripheral IV Insertion Adult [OM.PC] Stat 11/04/19 16:15 Peripheral IV Care [RC] . DIRECTED
[2019-11-04] MEDS ORDERED: Sodium Chloride 0.9% 10 ML Syringe FLUSH PRN (16:15)
[2019-11-04] MEDS ORDERED: Sodium Chloride 0.9% 1,000 ML IV SCH (16:15)
[2019-11-04] MEDS ORDERED: Ondansetron 4 MG/2 ML SDV IVPUSH ONE (16:15)
[2019-11-04] MEDS ORDERED: Piperacillin/Tazobactam 4.5 GM in Sodium Chloride 0.9% 100 ML IV ONE (17:52)
[2019-11-04] MEDS ORDERED: Glucagon,Human Recombinant 1 MG Vial IVPUSH ONE (18:59)
[2019-11-04] MEDS ORDERED: Diatrizoate Meglumine/Diatrizoate Sodium 37% 120 ML Bottle PO ONE (19:19)
--- NOTE | 2019-11-04 20:30 | CT ---
CT chest Technique: Multiple axial sections were obtained from above the lung apices inferiorly through the lung bases. Intravenous contrast not utilized. Oral contrast has been given. Findings: Small hiatal hernia is noted. Mild esophageal wall thickening is seen as well as patulous esophagus. There is a portion of the distal esophagus that is not well distended and difficult to exclude a stricture although this is not a definite finding. Contrast is otherwise seen throughout the esophagus with small amount of contrast seen within the stomach. Coronary artery calcification is seen. Mitral annulus calcification is noted. No pericardial thickening is seen. Mediastinum and hilar region show no adenopathy. Atherosclerotic calcification is noted within the thoracic aorta without aneurysm. No axillary adenopathy is seen. Lungs show no acute parenchymal change. No pleural effusions are seen. Bone window settings were reviewed showing slight degenerative change within the spine. Impression: 1. Contrast throughout the esophagus with no evidence of complete obstruction. There is one area within the distal esophagus showing no distention and difficult to exclude stricture although this may relate to lack of peristalsis. Small hiatal hernia is noted with mild areas of wall thickening. Wall thickening that was seen likely relates to gastroesophageal reflux. 2. Other findings believed to be nonacute as noted above. Diagnostic code #2 This report was dictated in [place] Standard Time
--- NOTE | 2019-11-04 20:55 | PCM.CONS ---
H&P History of Present Illness - General Date of Service: 11/04/19 Admit Problem/Dx: esophageal obstruction Source of Information: Family, Provider History Limitations: Reports: Altered Mental Status - History of Present Illness Onset of Symptoms: Reports: Today Duration of Symptoms: Reports: Hour(s): Location: Reports: Chest Other HPI/Comments: 83 yo M with dementia living in a retirement was noted to have vomiting, regurgitation, water brash today raising concern for food impaction. CT chest with PO contrast shows tapering of the mid esophagus with passage of water soluble contrast and a small hiatal hernia. - Related Data Allergies/Adverse Reactions: Allergies Allergy/AdvReac Type Severity Reaction Status Date / Time codeine Allergy Cannot Verified 11/04/19 15:37 Remember Home Medications: Home Meds Albuterol [Ventolin HFA] 2 puff INH Q6H PRN 07/24/19 [History] Budesonide/Formoterol [Symbicort 160-4.5 MCG] 2 puff INH BID 07/24/19 [History] Calcium Carbonate/Vitamin D3 [Calcium 600 + D3 Softgel] 600 each PO DAILY [History] Carbidopa/Levodopa [Sinemet 25-100 mg Tablet] 1 each PO TID 07/24/19 [History] FLUoxetine HCl [Fluoxetine HCl] 40 mg PO DAILY 07/24/19 [History] Folic Acid 0.4 mg PO DAILY 07/24/19 [History] Furosemide [Lasix] 60 mg PO BID 07/24/19 [History] Magnesium Hydroxide [Milk of Magnesia] 30 ml PO DAILY PRN 07/24/19 [History] Melatonin 6 mg PO BEDTIME 07/24/19 [History] Metoprolol Tartrate [Lopressor] 50 mg PO BID 07/24/19 [History] Polyethylene Glycol 3350 [MiraLAX] 17 gm PO DAILY PRN 07/24/19 [History] Pyridoxine HCl [Vitamin B-6] 50 mg PO DAILY 07/24/19 [History] Spironolactone [Aldactone] 25 mg PO DAILY 07/24/19 [History] Tamsulosin [Tamsulosin 24 Hr] 0.4 mg PO DAILY 07/24/19 [History] bisacodyL [Bisacodyl] 10 mg RECTAL DAILY PRN 07/24/19 [History] guaiFENesin [G-Fenesin] 400 mg PO TID PRN 07/24/19 [History] Acetaminophen 650 mg PO TID 11/04/19 [History] Bisacodyl 5 mg PO DAILY 11/04/19 [History] Diclofenac Sodium [Voltaren 1% Gel] 2 g TOP BID 11/04/19 [History] Ibuprofen 400 mg PO ASDIRECTED 11/04/19 [History] Methyl Salicylate/Menthol [Extra Strength Muscle Rub] 90 dose TOP DAILY [History] guaiFENesin [Guaifenesin] 400 mg PO ASDIRECTED 11/04/19 [History] traMADol [Ultram] 50 mg PO BID 11/04/19 [History] Past Medical History HEENT History: Reports: Hard of Hearing Other HEENT History: Bilateral hearing aids Cardiovascular History: Reports: Heart Failure, High Cholesterol, Hypertension, Other (See Below) Other Cardiovascular History: nonrheumatic aortic stenosis, atherosclerotic heart disease Respiratory History: Reports: Asthma Gastrointestinal History: Reports: Chronic Constipation, GERD Genitourinary History: Reports: BPH Musculoskeletal History: Reports: Back Pain, Chronic, Osteoarthritis, Other ( See Below) Other Musculoskeletal History: chronic myeloproliferative disease Neurological History: Reports: Alzheimers Disease, Parkinson's, Other (See Below ) Other Neuro History: spinal stenosis, tremor, insomnia Psychiatric History: Reports: Alzheimers Disease, Dementia Hematologic History: Reports: Other (See Below) Other Hematologic History: vitamin deficiency Social & Family History - Family History Family Medical History: Noncontributory - Tobacco Use Smoking Status *Q: Never Smoker Second Hand Smoke Exposure: No - Caffeine Use Caffeine Use: Reports: None - Recreational Drug Use Recreational Drug Use: No - Living Situation & Occupation Living situation: Reports: , Extended Care Facility ([facility]) Occupation: Retired H&P Review of Systems - Review of Systems: Review Of Systems: See Below Reason Not Obtained: advanced dementia Exam - Exam Exam: See Below - Vital Signs Vital Signs: Last Vital Signs Temp 36.7 C 11/04/19 15:33 Pulse 71 11/04/19 15:33 Resp 16 11/04/19 15:33 BP 106/50 L 11/04/19 15:33 Pulse Ox 91 L 11/04/19 15:33 Weight: 122.47 kg - Exam General: Alert HEENT: Conjunctiva Clear Neck: Supple Lungs: Clear to Auscultation, Normal Respiratory Effort Cardiovascular: Regular Rate GI/Abdominal Exam: Soft (Male) Exam: Deferred Rectal (Males) Exam: Deferred Skin: Warm, Dry Psychiatric: Normal Mood - Patient Data Lab Results Last 24 hrs: Laboratory Results - last 24 hr 11/04/19 11/04/19 11/04/19 Range/Units 16:30 16:30 16:30 WBC 7.91 (4.23-9.07) K/mm3 RBC 2.89 L (4.63-6.08) M/mm3 Hgb 8.9 L (13.7-17.5) gm/dl Hct 27.3 L (40.1-51.0) % MCV 94.5 H D (79.0-92.2) fl MCH 30.8 (25.7-32.2) pg MCHC 32.6 (32.2-35.5) g/dl RDW Std Deviation 79.2 H (35.1-43.9) fL Plt Count 245 (163-337) K/mm3 MPV 10.6 (9.4-12.3) fl Neut % (Auto) 74.9 H (34.0-67.9) % Lymph % (Auto) 12.6 L (21.8-53.1) % [place] % (Auto) 9.9 (5.3-12.2) % Eos % (Auto) 0.9 (0.8-7.0) Baso % (Auto) 0.3 (0.1-1.2) % Neut # (Auto) 5.93 H (1.78-5.38) K/mm3 Lymph # (Auto) 1.00 L (1.32-3.57) K/mm3 [place] # (Auto) 0.78 (0.30-0.82) K/mm3 Eos # (Auto) 0.07 (0.04-0.54) K/mm3 Baso # (Auto) 0.02 (0.01-0.08) K/mm3 Manual Slide Review Abnormal smear Sodium 141 (136-145) mEq/L Potassium 4.3 (3.5-5.1) mEq/L Chloride 106 (98-107) mEq/L Carbon Dioxide 27 (21-32) mEq/L Anion Gap 12.3 (5-15) BUN 37 H (7-18) mg/dL Creatinine 1.8 H (0.7-1.3) mg/dL Est Cr Clr Drug Dosing 31.54 mL/min Estimated GFR (MDRD) 36 (>60) mL/min BUN/Creatinine Ratio 20.6 H (14-18) Glucose 100 (83-115) mg/dL Lactic Acid 0.9 (0.4-2.0) mmol/L Calcium 7.8 L (8.5-10.1) mg/dL Total Bilirubin 1.3 H (0.2-1.0) mg/dL AST 19 (15-37) U/L ALT 8 L (16-63) U/L Alkaline Phosphatase 46 (46-116) U/L C-Reactive Protein 0.8 (<1.0) mg/dL Total Protein 5.6 L (6.4-8.2) g/dl Albumin 3.0 L (3.4-5.0) g/dl Globulin 2.6 gm/dL Albumin/Globulin Ratio 1.2 (1-2) Result Diagrams: 11/04/19 16:30 11/04/19 16:30 Sepsis Event Note - Evaluation Sepsis Screening Result: No Definite Risk - Focused Exam Vital Signs: Vital Signs Temp Pulse Resp BP Pulse Ox 11/04/19 15:33 36.7 C 71 16 106/50 L 91 L Date Exam was Performed: 11/04/19 Time Exam was Performed: 20:50 Consult PN Assessment/Plan Procedures: Procedures ASSAY OF AMYLASE (07/24/19) ASSAY OF MAGNESIUM (07/24/19) ASSAY OF NATRIURETIC PEPTIDE (07/24/19) ASSAY OF TROPONIN QUANT (07/26/19) BLOOD TRANSFUSION SERVICE (10/31/19) BLOOD TYPING SEROLOGIC ABO (10/31/19) BLOOD TYPING SEROLOGIC RH(D) (10/31/19) C-REACTIVE PROTEIN (07/24/19) COMPATIBILITY TEST ANTIGLOB (10/31/19) COMPLETE CBC W/AUTO DIFF WBC (07/26/19) COMPREHEN METABOLIC PANEL (07/26/19) CREATINE MB FRACTION (07/24/19) ELECTROCARDIOGRAM TRACING (07/26/19) EMERGENCY DEPT VISIT (07/26/19) HYDRATION IV INFUSION INIT (07/24/19) METABOLIC PANEL TOTAL CA (05/19/18) PROTHROMBIN TIME (07/24/19) RBC ANTIBODY SCREEN (10/31/19) ROUTINE VENIPUNCTURE (10/31/19) THER/PROPH/DIAG INJ IV PUSH (07/26/19) THROMBOPLASTIN TIME PARTIAL (07/24/19) TX/PRO/DX INJ SAME DRUG BRICK TESTER (07/26/19) URINALYSIS AUTO W/SCOPE (07/24/19) X-RAY EXAM ABDOMEN 1 VIEW (07/24/19) X-RAY EXAM CHEST 1 VIEW (07/26/19) X-RAY EXAM CHEST 2 VIEWS (07/24/19) Problem List Initiated/Reviewed/Updated: Yes Plan: Mr. Flores is now tolerating water by mouth without dysphagia or regurgitation. He may have had a transient food impaction or he may have issues from intrinsic esophageal disease as he has a hiatal hernia and history of reflux. I think that if he can tolerate clear liquids without issue he is fit for discharge back to the nursing facility and if dysphagia with more solid food persists he can follow up with me for diagnostic upper endoscopy. I have mentioned the possibility of g-tube gastropexy if it seems that his symptoms relate more to his hiatal hernia than anything. Requesting Provider: renetta Date Consult Requested: 11/04/19 Reason for Consult: dysphagia Patient History Reviewed: Yes Admission H&P Reviewed: Yes Consult Result/Summary:: Dysphagia. Now tolerating clears. No evidence of obstruction on CT scan. May follow up for outpatient upper endoscopy if symptoms persist with solid food. Notified Requestor: Yes Time Spent (in minutes): 45
--- NOTE | 2019-11-05 07:32 | CR ---
Abdomen: Supine and upright views of the abdomen were obtained. Comparison: Prior abdominal x-ray of 07/24/19. Aortoiliac stent is noted. Bowel gas pattern is normal. Joint space narrowing is noted within both hips. Surgical clips are seen within the right groin. Degenerative endplate spurring is noted within the spine. No free air is seen. Impression: 1. Findings believed to be incidental as noted above. Nothing acute seen on two-view abdominal x-ray. Diagnostic code #2 This report was dictated in [place] Standard Time
--- NOTE | 2019-11-05 07:32 | CR ---
Chest: Two views of the chest were obtained. Comparison: Prior chest x-ray of 07/26/19. Heart is slightly enlarged. Upper mediastinum is widened which appears stable. Lungs show slight scarring within the left base. Lungs otherwise are clear. Bony structures are grossly intact. Impression: 1. Findings as described above. 2. Nothing acute is seen. Diagnostic code #2 This report was dictated in [place] Standard Time
== END 2019-11-04 22:20 | disposition home or self-care (01) ==
LOC: JD.ED 15:30
DX: R11.10 Vomiting, unspecified (principal); I11.0 Hypertensive heart disease with heart failure; I50.9 Heart failure, unspecified; G30.9 Alzheimer's disease, unspecified; F02.80 Dementia in other diseases classified elsewhere, unspecified severity, without behavioral disturbance, psychotic disturbance, mood disturbance, and anxiety; Z88.5 Allergy status to narcotic agent; Z79.899 Other long term (current) drug therapy
CPT/HCPCS: 36415; 71046; 71250; 74019; 80053; 83605; 85025; 86140; 96361; 96374; 96375; 99285; J1610; J2405; J7030; Q9963; 99283

== ENCOUNTER 2019-11-26 08:20 | Day surgery (SDC) | payer OTHER, MEDICARE ==
--- NOTE | 2019-11-26 07:12 | PCM.PREANE ---
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/O2 utilized at night/Asthma) Cardiovascular: No Symptoms ([place]/AAA Repair 2014, CAD, Cardiomyopathy, CHF/Heart cath with 2 stents 2013, History of Aortic stenosis) Gastrointestinal: No Symptoms (GERD/hiatal hernia), Constipation, Vomiting Neurological: Dizziness (History of Meniere's Disease), Seizure (Dementia, Alzheimer's/Parkinson's Disease/History of seizures over one year ago??, and mini strokes one yr or more ago per [facility] Gait Disturbance Other: Reports: Easy Bruising, Neck Pain (Foraminal stenosis-cervical region- denies neck pain), Depression (Dementia), Anxiety - Physical Assessment NPO Status Date: 11/25/19 Vital Signs: HR:69 BP:112/55 Sat:95% room air Temp: 98.3 Resp: 17 Height: 1.78 m Weight: 90.718 kg ASA Class: 3 Mental Status: Other (History of dementia, parkinson disease, alzheimer's, orientated to person and place.) Airway Class: Mallampati = 2 Dentition: Reports: Dentures (upper and lower) Thyro-Mental Finger Breadths: 3 Mouth Opening Finger Breadths: 3 ROM/Head Extension: Full Lungs: Clear to Auscultation, Normal Respiratory Effort Cardiovascular: Regular Rate, Regular Rhythm, No Murmurs - Lab Values: All labs reviewed and noted, within acceptable ranges......(Values below noted) BUN=40 CR=1.94 HBG= 8.9 HCT=27.3 - Imaging/EKG Impressions: Echocardiogram: EF=55-60%, mild aortic valve stenosis, mild aortic valve regurgitation, mild mitral valve regurgitation - Allergies Allergies/Adverse Reactions: Allergies Allergy/AdvReac Type Severity Reaction Status Date / Time codeine Allergy Confusion Verified 11/23/19 13:03 morphine Allergy Confusion Verified 11/23/19 13:03 propoxyphene Allergy Confusion Verified 11/23/19 13:03 Sulfa (Sulfonamide Allergy Confusion Verified 11/23/19 13:03 Antibiotics) - Anesthesia Plan Pre-Op Medication Ordered: Beta Maurizio Beta Maurizio: Metoprolol Med Last Dose Date: 11/26/19 - Acknowledgements Anesthesia Type Planned: MAC Pt an Appropriate Candidate for the Planned Anesthesia: Yes Alternatives and Risks of Anesthesia Discussed w Pt/Guardian: Yes Pt/Guardian Understands and Agrees with Anesthesia Plan: Yes PreAnesthesia Questionnaire HEENT History: Reports: Hard of Hearing Other HEENT History: Bilateral hearing aids Cardiovascular History: Reports: Aneurysm, CAD, Cardiomyopathy, Heart Failure, High Cholesterol, Hypertension, Other (See Below) Other Cardiovascular History: nonrheumatic aortic stenosis, atherosclerotic heart disease, tibial artery occlusion, stents Respiratory History: Reports: Asthma Gastrointestinal History: Reports: Chronic Constipation, GERD, Other (See Below) Other Gastrointestinal History: gastric ulcer Genitourinary History: Reports: BPH [employer] ATTENDANT History: Reports: None Musculoskeletal History: Reports: Back Pain, Chronic, Osteoarthritis, Other ( See Below) Other Musculoskeletal History: chronic myeloproliferative disease, temor, bilateral hip injections Neurological History: Reports: Alzheimers Disease, Parkinson's, Seizure, Other ( See Below) Other Neuro History: spinal stenosis, tremor, insomnia, parkinsonism-secondary, menieres, cervical forminal stenosis Psychiatric History: Reports: Alzheimers Disease, Dementia, Depression Endocrine/Metabolic History: Reports: Vitamin D Deficiency, Other (See Below) Other Endocrine/Metabolic History: thyroid nodule Hematologic History: Reports: Anemia, Blood Transfusion(s), Other (See Below) Other Hematologic History: vitamin deficiency Immunologic History: Reports: None Oncologic (Cancer) History: Reports: Other (See Below) Other Oncologic History: MDS Dermatologic History: Reports: Other (See Below) Other Dermatologic History: ingrown toenail with surgery - Past Surgical History Head Surgeries/Procedures: Reports: None HEENT Surgical History: Reports: Naso-Sinus Surgery Cardiovascular Surgical History: Reports: AAA Repair Respiratory Surgical History: Reports: None GI Surgical History: Reports: EGD Female Surgical History: Reports: None Male Surgical History: Reports: None Endocrine Surgical History: Reports: None Neurological Surgical History: Reports: Other (See Below) Other Neurological Surgeries/Procedures: back surgery Musculoskeletal Surgical History: Reports: Other (See Below) Other Musculoskeletal Surgeries/Procedures:: right elbow surgery Oncologic Surgical History: Reports: None - HOME MEDS Home Medications: Home Meds Budesonide/Formoterol [Symbicort 160-4.5 MCG] 2 puff INH BID 07/24/19 [History] Carbidopa/Levodopa [Sinemet 25-100 mg Tablet] 1 each PO TID 07/24/19 [History] FLUoxetine HCl [Fluoxetine HCl] 40 mg PO DAILY 07/24/19 [History] Furosemide [Lasix] 40 mg PO BID 07/24/19 [History] Magnesium Hydroxide [Milk of Magnesia] 30 ml PO DAILY PRN 07/24/19 [History] Melatonin 6 mg PO BEDTIME 07/24/19 [History] Metoprolol Tartrate [Lopressor] 50 mg PO BID 07/24/19 [History] Pyridoxine HCl [Vitamin B-6] 50 mg PO DAILY 07/24/19 [History] Spironolactone [Aldactone] 25 mg PO DAILY 07/24/19 [History] Tamsulosin [Tamsulosin 24 Hr] 0.4 mg PO DAILY 07/24/19 [History] polyethylene glycoL 3350 [MiraLAX] 17 gm PO DAILY PRN 07/24/19 [History] Acetaminophen 650 mg PO TID 11/04/19 [History] Bisacodyl 10 mg PO DAILY 11/04/19 [History] Diclofenac Sodium [Voltaren 1% Gel] 1 dose TOP BID 11/04/19 [History] Ibuprofen 400 mg PO ASDIRECTED 11/04/19 [History] guaiFENesin [Guaifenesin] 400 mg PO Q3H PRN 11/04/19 [History] traMADol [Ultram] 50 mg PO BID 11/04/19 [History] Acetaminophen [Tylenol] 650 mg PO Q8H PRN 11/23/19 [History] Albuterol [Ventolin HFA] 2 puff INH Q6H PRN 11/23/19 [History] Calcium Carbonate/Vitamin D3 [Calcium 600 + Vit D 400 Softgl] 1 tab PO DAILY [History] Folic Acid 1 mg PO DAILY 11/23/19 [History] Furosemide [Lasix] 20 mg PO BID 11/23/19 [History] Megestrol Acetate [Megace Es] 400 mg PO DAILY 11/23/19 [History] Omeprazole Magnesium [Prilosec Otc] 20 mg PO QAM 11/23/19 [History] Promethazine [Phenergan] 1 dose TOP Q6H PRN 11/23/19 [History] Sennosides/Docusate Sodium [Senna-Docusate Sodium Tablet] 2 tab PO BEDTIME 11/23 [History] - CURRENT (IN HOUSE) MEDS Current Meds: Current Medications Lactated Ringer's (Ringers, Lactated) 1,000 mls @ 125 mls/hr IV ASDIRECTED DENNIS Stop: 11/26/19 23:00 Lidocaine/Sodium Bicarbonate (Buffered Lidocaine 1% In Ns 8.4%) 0.25 ml IDERM ONETIME PRN PRN Reason: Prior to IV Start Stop: 11/26/19 23:00 Sodium Chloride (Saline Flush) 10 ml FLUSH ASDIRECTED PRN PRN Reason: Keep Vein Open Stop: 11/26/19 23:00
[~2019-11-26 08:20] MED LIST: Lactated Ringers 1,000 ML IV SCH; Lidocaine 1% 6 ML ONE; Lidocaine 1%/Sod Bicarbonate in NS 8.4% 1 ML Syringe IDERM PRN; Propofol 200 MG/20 ML SDV ONE; Sodium Chloride 0.9% 10 ML Syringe FLUSH PRN; fentaNYL 100 MCG/2 ML SDV ONE
--- NOTE | 2019-11-26 11:21 | PCM48HPAN ---
Post Anesthesia Note - EVALUATION WITHIN 48HRS OF ANESTHETIC Vital Signs in Normal Range: Yes Patient Participated in Evaluation: Yes Respiratory Function Stable: Yes Airway Patent: Yes Cardiovascular Function Stable: Yes Hydration Status Stable: Yes Pain Control Satisfactory: Yes Nausea and Vomiting Control Satisfactory: Yes Mental Status Recovered: Yes Vital Signs: Last Vital Signs Temp 36.8 C 11/26/19 08:25 Pulse 69 11/26/19 08:25 Resp 17 11/26/19 08:25 BP 112/55 L 11/26/19 08:25 Pulse Ox 95 11/26/19 08:25
--- NOTE | 2019-11-27 08:12 | OR ---
DATE OF OPERATION: 11/27/2019 SURGEON: Lavon Amado MD PREOPERATIVE DIAGNOSIS: Nausea, vomiting, and upper abdominal pain. POSTOPERATIVE DIAGNOSIS: 1. 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 2. Stomach ulcer. 3. Edematous, erythematous gastric mucosa. OPERATION PERFORMED: Esophagogastroduodenoscopy with biopsies. ANESTHESIA: Monitored anesthesia care. ESTIMATED BLOOD LOSS: Minimal. COMPLICATIONS: None. INDICATION AND CONSENT: The patient is an 84-year-old male who is a [facility] patient due to dementia. The patient is currently having a lot of problem with p.o. intake. Has dysphagia, nausea, vomiting, difficulty swallowing, and 50-pound weight loss in the last 6 months. Emesis is nonbloody. The patient also has lymphoma and anemia. He has been managed by Dr. Carrion for both. Due to his dysphagia, the patient was seen in clinic, evaluated for EGD, and it was recommended that he undergoes an EGD. The patient presented today, and we proceeded with an EGD. DESCRIPTION OF PROCEDURE: The patient was taken to the procedure room, placed in left lateral decubitus position. Following induction of monitored anesthesia care, we began with upper GI. Scope was inserted and there was some thick mucus as well as a few residues of food in the upper and mid esophagus. Scope was advanced down. Due to the thick mucus, GE junction was visualized, but the irregularity of it was unclear. There was clearly some esophagitis in the distal esophagus. There was moderate stricture in the GE junction that appeared benign and we were able to traverse this stricture with moderate amount of force. Stomach was erythematous. There was a deep ulcer in the mid lesser curvature. Next to ulcer, there was a 6 mm polypoid lesion. There was diffuse edema and erythema from the fundus to the proximal antrum. Distal antrum and pylorus were normal. Duodenum was intubated. Duodenal bulb, first and second portion of duodenum appeared normal. Because of this abnormal mucosa of the stomach, multiple biopsies were taken in the stomach body as well as the fundus. The ulcer was also biopsied to obtain multiple samples. The polypoid lesion next to the ulcer was also biopsied. The GE junction was biopsied. Distal and mid esophagus were also biopsied for analysis. Antrum was biopsied for H. pylori as the patient has a history of this infection in the past. Once these were done, the stomach was suctioned out of air and procedure concluded. The patient will be returned to his [facility] for monitoring of any bleeding where I will see the patient in 10 days for discussion of pathology results and further plans. MMHEIDY /[id number] MTDD
== END 2019-11-26 13:05 | disposition home or self-care (01) ==
LOC: JD.SDS 08:20
PROVIDERS: ATTEND Surgery
DX: C16.0 Malignant neoplasm of cardia (principal); C16.9 Malignant neoplasm of stomach, unspecified; K20.9 Esophagitis, unspecified; K25.9 Gastric ulcer, unspecified as acute or chronic, without hemorrhage or perforation; K29.50 Unspecified chronic gastritis without bleeding; J45.909 Unspecified asthma, uncomplicated; I25.10 Atherosclerotic heart disease of native coronary artery without angina pectoris; E78.5 Hyperlipidemia, unspecified; I11.0 Hypertensive heart disease with heart failure; I50.9 Heart failure, unspecified; M16.10 Unilateral primary osteoarthritis, unspecified hip; N40.0 Benign prostatic hyperplasia without lower urinary tract symptoms; G30.9 Alzheimer's disease, unspecified; F02.80 Dementia in other diseases classified elsewhere, unspecified severity, without behavioral disturbance, psychotic disturbance, mood disturbance, and anxiety; Z88.5 Allergy status to narcotic agent; Z88.2 Allergy status to sulfonamides; Z88.8 Allergy status to other drugs, medicaments and biological substances; Z79.899 Other long term (current) drug therapy
CPT/HCPCS: 43239; J2001; J2704; J3010; J7120; 00731

== ENCOUNTER 2020-01-04 12:13 | Emergency (ER) | payer OTHER, MEDICARE ==
[2020-01-04] MEDS ORDERED: Dextrose 5%-0.9% NaCl 1,000 ML IV SCH (13:00)
--- NOTE | 2020-01-04 13:01 | EDM.PDOC ---
ED HPI GENERAL MEDICAL PROBLEM - General Chief Complaint: Cardiovascular Problem Stated Complaint: LOW BP Time Seen by Provider: 01/04/20 12:44 Source of Information: Reports: Family () History Limitations: Reports: Altered Mental Status - History of Present Illness INITIAL COMMENTS - FREE TEXT/NARRATIVE: 84-year-old elderly male sent across from [facility] by Dr. Amado-after he visited with the and the patient this morning. 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 Nothing will stay down and has not been able to eat for a lengthy period of time. Going into the assisted in early June and he weighed 285 pounds. He is down to about 185 pounds now. Patient is barely conscious at this point in time. Talk about whether or not he would benefit from an esophageal stent to allow him to eat. It is unclear to me whether or not anyone has had a discussion with himself and his about going on hospice and compassionate terminal care. Apparently he has a bed here at [facility] where he has been since around July 10. Really admitted to [facility] on June 28. Resident it appears that he has a terminal illness. He was sent across because of a blood pressure of 88/52 and felt to be significantly dehydrated. It is unclear whether or not he is suffering sepsis. The has not heard him cough. She states she does not know when he ate or drank last or try to eat or drink last. Onset: Gradual ([place] decline in health since May 2019. Admission to assisted in [place] June 28 and into [facility] July 10, 2019) Duration: Chronic, Getting Worse (Cannot keep anything down. Apparently had a EGD about a month ago with biopsies confirming esophageal cancer.) Location: Reports: Other (Fairly has esophageal and gastric cancer.) Quality: Reports: Other (Adult failure to thrive due to malnutrition and inability to eat due to cancer of the esophagus) Severity: Severe (100 pound weight loss over the last 5-1/2 months) Improves with: Reports: None Worsens with: Reports: Other (Patient continues to worsen is not able to eat or drink.) Associated Symptoms: Reports: Loss of Appetite, Malaise, Nausea/Vomiting, Weakness. 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: Other (see below) (None.) - Related Data Allergies Allergy/AdvReac Type Severity Reaction Status Date / Time codeine AdvReac Confusion Verified 01/04/20 12:28 morphine AdvReac Confusion Verified 01/04/20 12:28 propoxyphene AdvReac Confusion Verified 01/04/20 12:28 Sulfa (Sulfonamide AdvReac Confusion Verified 01/04/20 12:28 Antibiotics) Home Meds: Home Meds Budesonide/Formoterol [Symbicort 160-4.5 MCG] 2 puff INH BID 07/24/19 [History] Carbidopa/Levodopa [Sinemet 25-100 mg Tablet] 1 each PO TID 07/24/19 [History] FLUoxetine HCl [Fluoxetine HCl] 40 mg PO DAILY 07/24/19 [History] Furosemide [Lasix] 40 mg PO BID 07/24/19 [History] Magnesium Hydroxide [Milk of Magnesia] 30 ml PO DAILY PRN 07/24/19 [History] Melatonin 6 mg PO BEDTIME 07/24/19 [History] Metoprolol Tartrate [Lopressor] 50 mg PO BID 07/24/19 [History] Pyridoxine HCl [Vitamin B-6] 50 mg PO DAILY 07/24/19 [History] Spironolactone [Aldactone] 25 mg PO DAILY 07/24/19 [History] Tamsulosin [Tamsulosin 24 Hr] 0.4 mg PO DAILY 07/24/19 [History] polyethylene glycoL 3350 [MiraLAX] 17 gm PO DAILY PRN 07/24/19 [History] Acetaminophen 650 mg PO TID 11/04/19 [History] Bisacodyl 10 mg PO DAILY 11/04/19 [History] Diclofenac Sodium [Voltaren 1% Gel] 1 dose TOP BID 11/04/19 [History] Ibuprofen 400 mg PO ASDIRECTED 11/04/19 [History] guaiFENesin [Guaifenesin] 400 mg PO Q3H PRN 11/04/19 [History] traMADol [Ultram] 50 mg PO BID 11/04/19 [History] Acetaminophen [Tylenol] 650 mg PO Q8H PRN 11/23/19 [History] Albuterol [Ventolin HFA] 2 puff INH Q6H PRN 11/23/19 [History] Calcium Carbonate/Vitamin D3 [Calcium 600 + Vit D 400 Softgl] 1 tab PO DAILY [History] Folic Acid 1 mg PO DAILY 11/23/19 [History] Furosemide [Lasix] 20 mg PO BID 11/23/19 [History] Megestrol Acetate [Megace Es] 400 mg PO DAILY 11/23/19 [History] Omeprazole Magnesium [Prilosec Otc] 20 mg PO QAM 11/23/19 [History] Promethazine [Phenergan] 1 dose TOP Q6H PRN 11/23/19 [History] Sennosides/Docusate Sodium [Senna-Docusate Sodium Tablet] 2 tab PO BEDTIME 11/23 [History] Past Medical History HEENT History: Reports: Hard of Hearing Other HEENT History: Bilateral hearing aids Cardiovascular History: Reports: Aneurysm, CAD, Cardiomyopathy, Heart Failure, Heart Murmur (Mitral insufficiency murmur), High Cholesterol, Hypertension, Other (See Below) Other Cardiovascular History: nonrheumatic aortic stenosis, atherosclerotic heart disease, tibial artery occlusion, stents Respiratory History: Reports: Asthma Gastrointestinal History: Reports: Chronic Constipation, GERD, Other (See Below) Other Gastrointestinal History: gastric ulcer Genitourinary History: Reports: BPH ACID CORRECTION HAND History: Reports: None Musculoskeletal History: Reports: Back Pain, Chronic, Osteoarthritis, Other ( See Below) Other Musculoskeletal History: chronic myeloproliferative disease, temor, bilateral hip injections Neurological History: Reports: Alzheimers Disease, Parkinson's (Is on levodopa therapy.), Seizure, Other (See Below) Other Neuro History: spinal stenosis, tremor, insomnia, parkinsonism-secondary, menieres, cervical forminal stenosis Psychiatric History: Reports: Alzheimers Disease, Dementia, Depression Endocrine/Metabolic History: Reports: Vitamin D Deficiency, Other (See Below) Other Endocrine/Metabolic History: thyroid nodule Hematologic History: Reports: Anemia, Blood Transfusion(s), Other (See Below) Other Hematologic History: vitamin deficiency Immunologic History: Reports: None Oncologic (Cancer) History: Reports: Other (See Below) Other Oncologic History: MDS, stomach and esophogeal Dermatologic History: Reports: Other (See Below) Other Dermatologic History: ingrown toenail with surgery - Past Surgical History Head Surgeries/Procedures: Reports: None HEENT Surgical History: Reports: Naso-Sinus Surgery Cardiovascular Surgical History: Reports: AAA Repair Respiratory Surgical History: Reports: None GI Surgical History: Reports: EGD Male Surgical History: Reports: None Endocrine Surgical History: Reports: None Neurological Surgical History: Reports: Other (See Below) Other Neurological Surgeries/Procedures: back surgery Musculoskeletal Surgical History: Reports: Other (See Below) Other Musculoskeletal Surgeries/Procedures:: right elbow surgery Oncologic Surgical History: Reports: None Social & Family History - Family History Family Medical History: Noncontributory - Tobacco Use Smoking Status *Q: Never Smoker - Caffeine Use Caffeine Use: Reports: None - Recreational Drug Use Recreational Drug Use: No - Living Situation & Occupation Living situation: Reports: , Extended Care Facility ([facility]) Occupation: Retired ED ROS GENERAL - Review of Systems Review Of Systems: See Below Constitutional: Reports: Malaise, Weakness, Fatigue, Decreased Appetite ( June 2019 thing will stay down), Weight Loss (300 pound weight loss since) . Denies: Fever, Chills HEENT: Reports: Glasses Respiratory: Reports: Shortness of Breath. Denies: Wheezing, Pleuritic Chest Pain, Cough, Sputum Cardiovascular: Reports: Blood Pressure Problem, Lightheadedness. Denies: Chest Pain, Claudication (Tends to run very low as of late.), Dyspnea on Exertion, Orthopnea Endocrine: Reports: Fatigue GI/Abdominal: Reports: Constipation, Other (Known to have esophageal gastric cancer diagnosed by EGD approximately a month ago.). Denies: Abdominal Pain : Reports: Frequency, Other (Known to have BPH with an elevated PSA but biopsies were negative for cancer.) Musculoskeletal: Reports: Back Pain Skin: Reports: Pallor Neurological: Reports: Other (Present he is not speaking but will obey commands. ) Hematologic/Lymphatic: Reports: Anemia Immunologic: Reports: No Symptoms ED EXAM, GENERAL - Physical Exam Exam: See Below Exam Limited By: Other (And is nonverbal. He does obey commands i.e. he did open his mouth to allow me to look at his tongue.) General Appearance: Lethargic, Other (Is not appear to be in any distress. Temperature is 36.6 with a heart rate of 85 respiratory 16 BP 11/13/1975 pulse of ox is 98% on room air) Eye Exam: Bilateral Eye: Normal Inspection (He does have mild blepharal pallor. No scleral icterus.) Throat/Mouth: Other Head: Atraumatic (Tongue is slightly moist. Oropharynx is dry otherwise.), Normocephalic Neck: Normal Inspection, Supple, Non-Tender, Full Range of Motion. No: Lymphadenopathy (L), Lymphadenopathy (R) Respiratory/Chest: No Respiratory Distress, Lungs Clear, Normal Breath Sounds, No Accessory Muscle Use, Chest Non-Tender Cardiovascular: Normal Peripheral Pulses, Regular Rate, Rhythm, No Edema, No Gallop, No Rub, Systolic Murmur (Systolic ejection murmur heard best at the left lower sternal border radiating towards the left axilla compared with mitral insufficiency. 2 out of 6), Other (Presents hypotensive. 100/57) Peripheral Pulses: 0: Posterior Tibial (L) (Pulses are not present in either foot due to dependent edema. They are very cool to touch.), Posterior Tibial (R ), Dorsalis Pedis (L), Dorsalis Pedis (R) GI/Abdominal: Normal Bowel Sounds, Soft, Non-Tender, No Organomegaly, Other ( Question whether or not he is bladder is distended up to mid umbilicus. It is slightly tender to touch in this area and is a sense of fullness and dullness to percussion. Questionable urinary retention. Bladder scan will be done) (Male) Exam: Other (He has firm indurated areas in both inguinal areas but cannot define a definitive mass or lymph node consolidation. There is more to be inguinal ligament that is more prominent since he is lost much weight.) Back Exam: Decreased Range of Motion Extremities: Other (He has edema of both hands and lower extremities due to hypoalbuminemia and malnutrition.) Neurological: Normal Cognition, Unresponsive (He does not speak verbally but does listen to and obey commands.). No: Normal Gait, Normal Reflexes, No Motor/ Sensory Deficits Psychiatric: Flat Affect Skin Exam: Warm, Dry, Intact, Cool, Pallor (Or pallor. Appears to be anemic) EKG INTERPRETATION EKG Date: 01/04/20 Time: 13:07 Rhythm: NSR Rate (Beats/Min): 77 [place]: LAD-Left [place] Deviation (Is 42 degrees) P-Wave: Present (With first-degree AV block) QRS: Other (Nonspecific intraventricular conduction delay Q waves in lead V1 which is not necessarily abnormal. There is early R wave transition consider right ventricular hypertrophy pattern recent voltage throughout the precordial leads.) ST-T: Other (Nonspecific T wave flattening in leads I, aVL, lead III, lead II, leads aVF, leads V5 and V6. Consider hypokalemia.) QT: Prolonged (Early prolonged) EKG Interpretation Comments: Abnormal ECG Course - Vital Signs Last Recorded V/S: Last Vital Signs Temp 36.6 C 01/04/20 12:25 Pulse 85 01/04/20 12:25 Resp 16 01/04/20 12:25 BP 121/76 01/04/20 12:25 Pulse Ox 98 01/04/20 12:25 - Orders/Labs/Meds Labs: Laboratory Tests 01/04/20 01/04/20 01/04/20 Range/Units 12:45 12:45 12:45 WBC 11.18 H (4.23-9.07) K/mm3 RBC 2.66 L (4.63-6.08) M/mm3 Hgb 8.7 L (13.7-17.5) gm/dl Hct 26.9 L (40.1-51.0) % MCV 101.1 H D (79.0-92.2) fl MCH 32.7 H (25.7-32.2) pg MCHC 32.3 (32.2-35.5) g/dl RDW Std Deviation 94.1 H (35.1-43.9) fL Plt Count 313 (163-337) K/mm3 MPV 11.5 (9.4-12.3) fl Neutrophils % (Manual) 77 H (40-60) % Band Neutrophils % 0 (0-10) % Lymphocytes % (Manual) 18 L (20-40) % Atypical Lymphs % 0 % Monocytes % (Manual) 5 (2-10) % Eosinophils % (Manual) 0 L (0.8-7.0) % Basophils % (Manual) 0 L (0.2-1.2) Platelet Estimate Adequate Poikilocytosis 1+ slight Anisocytosis 1+ slight Macrocytosis 2+ moderate RBC Morph Comment Not Reportable ESR (0-15) mm/hr PT 11.4 (9.7-12.0) SECONDS INR 1.05 APTT 29 (22-31) SECONDS Sodium 138 (136-145) mEq/L Potassium 3.7 (3.5-5.1) mEq/L Chloride 103 (98-107) mEq/L Carbon Dioxide 21 (21-32) mEq/L Anion Gap 17.7 H (5-15) BUN 69 H D (7-18) mg/dL Creatinine 2.6 H (0.7-1.3) mg/dL Est Cr Clr Drug Dosing TNP Estimated GFR (MDRD) 24 (>60) mL/min BUN/Creatinine Ratio 26.5 H (14-18) Glucose 100 (83-115) mg/dL POC Glucose (83-110) mg/dL Lactic Acid (0.4-2.0) mmol/L Calcium 8.1 L (8.5-10.1) mg/dL Magnesium (1.8-2.4) mg/dl Total Bilirubin 1.6 H (0.2-1.0) mg/dL AST 27 (15-37) U/L ALT 8 L (16-63) U/L Alkaline Phosphatase 53 (46-116) U/L CK-MB (CK-2) (0-3.6) ng/ml Troponin I 0.433 H* (0.00-0.056) ng/mL C-Reactive Protein (<1.0) mg/dL NT-Pro-B Natriuret Pep (0-450) pg/mL Total Protein 6.3 L (6.4-8.2) g/dl Albumin 2.9 L (3.4-5.0) g/dl Globulin 3.4 gm/dL Albumin/Globulin Ratio 0.9 L (1-2) Ketones (0.0-0.3) mM 01/04/20 01/04/20 01/04/20 Range/Units 12:45 12:45 12:45 WBC (4.23-9.07) K/mm3 RBC (4.63-6.08) M/mm3 Hgb (13.7-17.5) gm/dl Hct (40.1-51.0) % MCV (79.0-92.2) fl MCH (25.7-32.2) pg MCHC (32.2-35.5) g/dl RDW Std Deviation (35.1-43.9) fL Plt Count (163-337) K/mm3 MPV (9.4-12.3) fl Neutrophils % (Manual) (40-60) % Band Neutrophils % (0-10) % Lymphocytes % (Manual) (20-40) % Atypical Lymphs % % Monocytes % (Manual) (2-10) % Eosinophils % (Manual) (0.8-7.0) % Basophils % (Manual) (0.2-1.2) Platelet Estimate Poikilocytosis Anisocytosis Macrocytosis RBC Morph Comment ESR 73 H (0-15) mm/hr PT (9.7-12.0) SECONDS INR APTT (22-31) SECONDS Sodium (136-145) mEq/L Potassium (3.5-5.1) mEq/L Chloride (98-107) mEq/L Carbon Dioxide (21-32) mEq/L Anion Gap (5-15) BUN (7-18) mg/dL Creatinine (0.7-1.3) mg/dL Est Cr Clr Drug Dosing Estimated GFR (MDRD) (>60) mL/min BUN/Creatinine Ratio (14-18) Glucose (83-115) mg/dL POC Glucose (83-110) mg/dL Lactic Acid (0.4-2.0) mmol/L Calcium (8.5-10.1) mg/dL Magnesium 2.5 H (1.8-2.4) mg/dl Total Bilirubin (0.2-1.0) mg/dL AST (15-37) U/L ALT (16-63) U/L Alkaline Phosphatase (46-116) U/L CK-MB (CK-2) (0-3.6) ng/ml Troponin I (0.00-0.056) ng/mL C-Reactive Protein 8.1 H* (<1.0) mg/dL NT-Pro-B Natriuret Pep 7922 H (0-450) pg/mL Total Protein (6.4-8.2) g/dl Albumin (3.4-5.0) g/dl Globulin gm/dL Albumin/Globulin Ratio (1-2) Ketones (0.0-0.3) mM 03/13/20 03/13/20 03/13/20 Range/Units 12:45 12:45 13:14 WBC (4.23-9.07) K/mm3 RBC (4.63-6.08) M/mm3 Hgb (13.7-17.5) gm/dl Hct (40.1-51.0) % MCV (79.0-92.2) fl MCH (25.7-32.2) pg MCHC (32.2-35.5) g/dl RDW Std Deviation (35.1-43.9) fL Plt Count (163-337) K/mm3 MPV (9.4-12.3) fl Neutrophils % (Manual) (40-60) % Band Neutrophils % (0-10) % Lymphocytes % (Manual) (20-40) % Atypical Lymphs % % Monocytes % (Manual) (2-10) % Eosinophils % (Manual) (0.8-7.0) % Basophils % (Manual) (0.2-1.2) Platelet Estimate Poikilocytosis Anisocytosis Macrocytosis RBC Morph Comment ESR (0-15) mm/hr PT (9.7-12.0) SECONDS INR APTT (22-31) SECONDS Sodium (136-145) mEq/L Potassium (3.5-5.1) mEq/L Chloride (98-107) mEq/L Carbon Dioxide (21-32) mEq/L Anion Gap (5-15) BUN (7-18) mg/dL Creatinine (0.7-1.3) mg/dL Est Cr Clr Drug Dosing Estimated GFR (MDRD) (>60) mL/min BUN/Creatinine Ratio (14-18) Glucose (83-115) mg/dL POC Glucose 115 H (83-110) mg/dL Lactic Acid (0.4-2.0) mmol/L Calcium (8.5-10.1) mg/dL Magnesium (1.8-2.4) mg/dl Total Bilirubin (0.2-1.0) mg/dL AST (15-37) U/L ALT (16-63) U/L Alkaline Phosphatase (46-116) U/L CK-MB (CK-2) 3.6 (0-3.6) ng/ml Troponin I (0.00-0.056) ng/mL C-Reactive Protein (<1.0) mg/dL NT-Pro-B Natriuret Pep (0-450) pg/mL Total Protein (6.4-8.2) g/dl Albumin (3.4-5.0) g/dl Globulin gm/dL Albumin/Globulin Ratio (1-2) Ketones 0.72 (0.0-0.3) mM 03/13/20 Range/Units 13:20 WBC (4.23-9.07) K/mm3 RBC (4.63-6.08) M/mm3 Hgb (13.7-17.5) gm/dl Hct (40.1-51.0) % MCV (79.0-92.2) fl MCH (25.7-32.2) pg MCHC (32.2-35.5) g/dl RDW Std Deviation (35.1-43.9) fL Plt Count (163-337) K/mm3 MPV (9.4-12.3) fl Neutrophils % (Manual) (40-60) % Band Neutrophils % (0-10) % Lymphocytes % (Manual) (20-40) % Atypical Lymphs % % Monocytes % (Manual) (2-10) % Eosinophils % (Manual) (0.8-7.0) % Basophils % (Manual) (0.2-1.2) Platelet Estimate Poikilocytosis Anisocytosis Macrocytosis RBC Morph Comment ESR (0-15) mm/hr PT (9.7-12.0) SECONDS INR APTT (22-31) SECONDS Sodium (136-145) mEq/L Potassium (3.5-5.1) mEq/L Chloride (98-107) mEq/L Carbon Dioxide (21-32) mEq/L Anion Gap (5-15) BUN (7-18) mg/dL Creatinine (0.7-1.3) mg/dL Est Cr Clr Drug Dosing Estimated GFR (MDRD) (>60) mL/min BUN/Creatinine Ratio (14-18) Glucose (83-115) mg/dL POC Glucose (83-110) mg/dL Lactic Acid 1.4 (0.4-2.0) mmol/L Calcium (8.5-10.1) mg/dL Magnesium (1.8-2.4) mg/dl Total Bilirubin (0.2-1.0) mg/dL AST (15-37) U/L ALT (16-63) U/L Alkaline Phosphatase (46-116) U/L CK-MB (CK-2) (0-3.6) ng/ml Troponin I (0.00-0.056) ng/mL C-Reactive Protein (<1.0) mg/dL NT-Pro-B Natriuret Pep (0-450) pg/mL Total Protein (6.4-8.2) g/dl Albumin (3.4-5.0) g/dl Globulin gm/dL Albumin/Globulin Ratio (1-2) Ketones (0.0-0.3) mM Meds: Medications Discontinued Medications Generic Name Dose Route Start Last Admin Trade Name Tab PRN Reason Stop Dose Admin Fentanyl 12 mcg 01/04/20 15:30 01/04/20 15:39 Duragesic TRDERM 12 mcg Q72H DENNIS Administration Hydromorphone HCl 0.5 mg 01/04/20 13:52 01/04/20 14:04 Dilaudid IVPUSH 01/04/20 13:53 0.5 mg ONETIME ONE Administration Dextrose/Sodium Chloride 1,000 mls @ 999 mls/hr 01/04/20 13:00 01/04/20 13:08 Dextrose 5%-Normal Saline IV 999 mls/hr ASDIRECTED DENNIS Administration Ondansetron HCl 4 mg 01/04/20 13:52 01/04/20 14:02 Zofran IVPUSH 01/04/20 13:53 4 mg ONETIME ONE Administration - Radiology Interpretation Free Text/Narrative:: 84-year-old male presents to the ED at the request of his surgeon Dr. Amado to reported hypotension with a BP of 80/52. 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 The diagnosis was made by EGD by Dr. Amado a little over a month ago. Apparently they were at the clinic today to see if anything further could be done for him. There was some talk about having an esophageal stent placed to allow him to eat but this would have to be done in [place] and the patient is too weak to make the trip at this point time. I am not sure that this is a adequate alternative. He has a fatal illness and I think a discussion has to be had with the about compassionate terminal care and placing the patient on hospice. At any rate BP is currently 100/57. Labs will be done and I will give him a liter of D5 normal saline. He may be in urinary retention as he seems to be tender and full in the lower portion of his abdomen. He has lost nearly 100 pounds of weight in the last 6 months. I may build to give the a better picture of his illness severity once the labs are completed. He does not appear to be septic at this time - Re-Assessments/Exams Free Text/Narrative Re-Assessment/Exam: 01/04/20 13:20 bedside blood sugar is reported at 115 Free Text/Narrative Re-Assessment/Exam: 01/04/20 13:38 blood pressure is 109/56 with a heart rate of 82 and sinus O2 sats 99% on room air 01/04/20 13:49 portable chest x-ray reveals marked cardiomegaly. Poor inspirational views of the lungs. No obvious pulmonary infiltrates identified appears to be a soft tissue line that travels across the superior mediastinum bilaterally. 01/04/20 13:54 is complaining of some abdominal pain. I will therefore give him Dilaudid 0.5 mg IV and Zofran 4 mg IV at this time 01/04/20 14:15 Differential on the white count is 77% neutrophils and no bands cells reported. Sed rate is 73. Chemistry shows a sodium of 138 a potassium of 3.7 chloride is 103 with a bicarb of 21. Anion gap was mildly elevated at 17.7. BUN was elevated at 69 with a creatinine of 2.6 GFR is 24 a stage IV chronic kidney disease. Glucose is 100 in the lab and was 115 at the bedside. 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 Troponin is elevated at 0.433 suggesting recent myocardial infarction C-reactive protein is 8.1 BNP is 7922 suggesting recent myocardial infarction with likely hypertension secondary to cardiogenic shock protein is 6.3 with an albumin fraction of 2.9 01/04/20 14:34 I have discussed the findings with the that his elevated troponin is highly suspect for recent myocardial infarction and likely failing heart function and low blood pressure secondary to cardiogenic etiology. His multiple comorbidities including dementia and Parkinson's disease. My opinion that he would be better served by going back to the assisted for compassionate terminal care but I will try and discuss this with his primary care physician who is Dr. Miller. The I think feels that he would be better served in the hospital. I did discuss the case with Dr. Cristian Blackman and we both believe that he would be better served in the assisted as his days are numbered. It is likely that he will succumb to his current illness within the next 3 to 7 days. The understood this she was in agreement with treatment by hospice and arrangements for compassionate terminal care at the assisted. The assisted staff was also amenable to this plan. Departure - Departure Time of Disposition: 15:56 Disposition: DC/Tfer to [facility] Reason for Transfer *Q: Other Condition: Critical Clinical Impression: Carcinoma of cardio-esophageal junction, Elevated troponin I measurement Congestive heart failure Qualifiers: Heart failure type: combined systolic and diastolic Heart failure chronicity: acute on chronic Qualified Code(s): I50.43 - Acute on chronic combined systolic (congestive) and diastolic (congestive) heart failure Malnutrition Qualifiers: Malnutrition type: protein-calorie malnutrition Protein-calorie malnutrition severity: severe Qualified Code(s): E43 - Unspecified severe protein-calorie malnutrition Dementia Qualifiers: Dementia type: Alzheimer's disease Alzheimer's disease onset: late-onset Dementia behavioral disturbance: without behavioral disturbance Qualified Code(s ): G30.1 - Alzheimer's disease with late onset Referrals: Tyler Palumbo MD [Primary Care Provider] - Forms: ED Department Discharge Additional Instructions: Evaluation in the emergency room today at the request of --[facility]. Consultation with Dr. Amado carried out today to see if there was a possibility of inserting an esophageal stent to allow him to continue to feed and drink but this would not be able to be carried out in [place] and would have to be carried out by a house carpenter helper. It is also highly unlikely to be successful due to the severity of the stenosis appreciated on CT scan and on EGD. The second option was to prolong life with a feeding tube into the stomach. This was felt not to be an option at this time. He was sent to the ED for evaluation of low blood pressure recorded as 80 /52 at that institution. On evaluation here his blood pressure initially was 87 /57 and came up to 100/62 shortly thereafter. He received a liter of IV fluids for resuscitation and had labs carried out. Unfortunately the labs reveal that he has significant congestive heart failure with marked elevation of the BNP at nearly 8000. He is suffering protein malnutrition and therefore has edema of hands and feet. Elevated troponin I at 2.433 is highly suggestive of a recent myocardial infarction and likely an exacerbation of heart failure and low blood pressure called cardiogenic shock. In combination with dementia and Parkinson' s disorder it is felt that is likely just to succumb to current illness. It is felt after discussion with his primary care physician Dr. Miller that he should return to the [facility] where he has a bed and be placed on hospice and passionate terminal care. He seems to be having some pain in the epigastrium and one cannot be sure this is not due to ischemia from his heart or from tumor in his distal esophagus. I have therefore placed him on a fentanyl patch 12 mcg/h in the hopes of relieving his pain for the next [address] Miller will address the need for other medications at this point time as he is on a long list of medications . Sepsis Event Note - Evaluation Sepsis Screening Result: No Definite Risk - Focused Exam Date Exam was Performed: 01/09/20 Time Exam was Performed: 14:39
[2020-01-04] MEDS ORDERED: HYDROmorphone 0.5 MG/0.5 ML Syringe IVPUSH ONE (13:52)
[2020-01-04] MEDS ORDERED: Ondansetron 4 MG/2 ML SDV IVPUSH ONE (13:52)
--- NOTE | 2020-01-04 13:56 | CR ---
Chest: Portable supine view of the chest was obtained. Comparison: Prior chest x-ray of 11/04/19. Scarring is noted within the left lung base. Lungs otherwise are clear with no acute parenchymal change. Heart size is within normal limits. Widening of the mediastinum is seen which correlates to tortuous great vessels on CT exam of 11/04/19. Bony structures are grossly intact. Impression: 1. Findings as noted above felt to be chronic. 2. Nothing acute is appreciated. Diagnostic code #2 This report was dictated in MDT
[2020-01-04] MEDS ORDERED: fentaNYL 12 MCG/HR Transdermal Patch TRDERM SCH (15:30)
== END 2020-01-04 16:20 ==
LOC: JD.ED 12:13
DX: I11.0 Hypertensive heart disease with heart failure (principal); I50.43 Acute on chronic combined systolic (congestive) and diastolic (congestive) heart failure; E43 Unspecified severe protein-calorie malnutrition; R79.89 Other specified abnormal findings of blood chemistry; G30.1 Alzheimer's disease with late onset; F02.80 Dementia in other diseases classified elsewhere, unspecified severity, without behavioral disturbance, psychotic disturbance, mood disturbance, and anxiety; C16.0 Malignant neoplasm of cardia; I25.10 Atherosclerotic heart disease of native coronary artery without angina pectoris; E78.00 Pure hypercholesterolemia, unspecified; J45.909 Unspecified asthma, uncomplicated; K21.9 Gastro-esophageal reflux disease without esophagitis; M19.90 Unspecified osteoarthritis, unspecified site; F32.9 Major depressive disorder, single episode, unspecified; Z88.5 Allergy status to narcotic agent; Z88.2 Allergy status to sulfonamides; Z88.8 Allergy status to other drugs, medicaments and biological substances; Z79.899 Other long term (current) drug therapy
CPT/HCPCS: 36415; 71045; 80053; 82009; 82553; 82962; 83605; 83735; 83880; 84484; 85007; 85027; 85610; 85652; 85730; 86140; 87040; 93005; 96361; 96374; 96375; 99285; A9270; J1170; J2405; J7042; 93010